=== PATIENT | male | born 1975 | race African-American/Black ===

== ENCOUNTER 2023-09-15 12:57 | Outpatient (AMB) | payer OTHER, SELFPAY ==
--- NOTE | 2023-09-15 12:59 | MHC.PC.OV ---
Vital Signs 09/15/23 13:05 Height 5 ft 11 in Weight 195 lb BMI 27.2 BP 112/74 Blood Pressure Location Rt brachial Position Sitting Pulse 73 Pulse Source Pulse Oximeter Pulse Oximetry (%) 97 Oxygen Delivery Method Room Air Intake Visit Reasons: Est Care, DM but might be controlled now Intake Note: Pt is here today as a New Patient to est care/ DM Allergies No Known Allergies Allergy (Verified 09/15/23 13:17) Tobacco use date assessed: 09/15/23 Dental Screening Dental Screen Date: 09/15/23 Did you have a dental visit in the last 12 months?: Yes Did you have a dental problem in the last 6 months where you did not have access to dental care?: No Was dental information given to patient?: Patient has dentist HPI HPI Comments History of Present Illness Details Patient is a 48-year-old male in today to establish care and have a diabetic visit. He has no complaints at the time of appointment. He has not seen a primary care provider in a couple years. He denies any symptoms of polyuria, polydipsia, tingling, numbness. He has not taken medication for his diabetes. His in office A1c was 3.6. Will need to draw labs to confirm this. Patient also offers a complaint of right shoulder and right elbow pain that has gotten progressively worse over the past year and a half. Patient states that he used to be homeless and needed to haul his luggage with him everywhere he went, which required him to lift and drag the luggage up and down stairs and on public transportation. Denies any trauma to the area. Denies any tingling or numbness. Has not tried any medications for relief [facility] Medical History (Updated 09/15/23 @ 15:15 by ZECHARIAH Bear) GERD (gastroesophageal reflux disease) Social History Housing: Apartment Patient Tobacco Use Status: Never used Tobacco e-Cigarette/Vaping Use: Never Used service: No Current occupational status: unemployed Cognitive needs: No Hearing needs: No Vision needs: No Questionnaire PHQ-9 Over the last 2 weeks, how often have you been bothered by any of the following problems? 1. Little interest or pleasure in doing things: several days 2. Feeling down, depressed, or hopeless: not at all 3. Trouble falling or staying asleep, or sleeping too much: several days 4. Feeling tired or having little energy: nearly every day 5. Poor appetite or overeating: nearly every day 6. Feeling bad about yourself - or that you are a failure or have let yourself or your family down: not at all 7. Trouble concentrating on things, such as reading the newspaper or watching television: not at all 8. Moving or speaking so slowly that other people could have noticed. Or the opposite - being so fidgety or restless that you have been moving around a lot more than usual: not at all 9. Thoughts that you would be better off or of hurting yourself in some way: not at all Total score: 8 Depression Screening Interpretation: Negative Depression Screening Done: Yes 63979 - PHQ-9 Billing: Yes Source: Developed by Drs. Chalino Rowan, Charlotte Hernandez, Keith Cifuentes and colleagues, with an educational deandre from [employer]. Thrive Questionnaire What is your living situation today?: I have a steady place to live Within the past 12 months, did the food you bought not last and you didn't have the money to get more?: Never true Within the past 12 months, did you worry whether your food would run out before you got money to buy more?: Sometimes True Do you have trouble paying for medicines?: No Do you have trouble getting transportation to medical appointments?: No Do you have trouble paying your heating and electricity bill?: No Do you have trouble taking care of your child, family member or friend?: No Do you have trouble with day-to-day activities such as bathing, preparing meals, shopping, managing finances, etc.?: No Are you currently unemployed and looking for a job?: Yes Are you interested in more education?: Yes Please select the resources that you would like help with: Transportation, Job search/training and Education AUDIT C Alcohol Use Questionnaire (AUDIT-C) 1. How often do you have a drink containing alcohol?: Never Total Score: 0 SANCHEZ-7 AMB Questionnaire SANCHEZ-7 Feeling nervous, anxious, or on edge: 0 = Not at all Not being able to stop or control worryin = Not at all Worrying too much about different things: 0 = Not at all Trouble relaxin = Not at all Being so restless that it is hard to sit still: 0 = Not at all Becoming easily annoyed or irritable: 0 = Not at all Feeling afraid as if something awful might happen: 0 = Not at all Total SANCHEZ-7 score (0-4 normal; 5-9 mild; 10-14 moderate; 15-21 severe): 0 Source: Developed by Drs. Chalino Rowan, Charlotte Hernandez, Keith Cifuentes and colleagues, with an educational deandre from [employer]. Review of Systems Const Details: Constitutional : No Weight loss, No Fever, No Chills, No Fatigue, No Malaise ENT/Mouth : No sore throat, No Rhinorrhea Eyes: No Eye Pain, No Swelling, No Redness Cardiovascular : No Chest Pain, No SOB, No Dyspnea on Exertion, No Orthopnea, No Edema, No Palpitations Respiratory : No Cough, No Sputum, No Wheezing Gastrointestinal : No Nausea, No Vomiting, No Diarrhea, No Constipation, No abdominal Pain, No Hematochezia, No Melena. Admits reflux. Genitourinary : No Dysuria, No Urinary Frequency, No Hematuria, Musculoskeletal : Admits right shoulder and elbow pain. Skin : No Skin Lesions, No rash Neuro : No Weakness, No Numbness, No Dizziness, No Headache Psych : No Anxiety/Panic, No Depression Heme/Lymph: No Bruising, No Bleeding,No Lymphadenopathy Endocrine : No Polyuria, No Polydipsia All other systems reviewed and are negative Physical exam (Primary Care) Vital Signs: Vital signs have been reviewed and are stable BMI result Body Mass Index 27.2 Depression Screening Interpretation: Negative Const Other: Appearance: Alert.? Oriented X3.? No acute distress.? CVS: Normal heart rate and rhythm.? Pulses normal.? Respiratory: No respiratory distress.? Breath sounds normal.? Abdomen: Soft and nontender.? Skin: Skin warm and dry.? Normal skin color.? Normal skin turgor.? Extremities: right shoulder and elbow pain. No obvious deformity. Some point tenderness to lateral epicondyle. Right shoulder positive for crepitus. Back: No midline tenderness, no C-spine tenderness, full range of motion, no CVA tenderness bilaterally Neuro: Oriented X 3.? No motor deficit.? No sensory deficit. CN 2-12 intact Results AMB Hemoglobin A1c AMB Hemoglobin A1c 3.2 % Last Edit by Richa Sanderson CMA on 09/15/23 13:28 Assessment and Plan Assessment & Plan (1) Right elbow pain: Comment: Patient will have x-ray. He has been prescribed diclofenac gel to be used as prescribed. Well send PT based on results Code(s): M25.521 - Pain in right elbow (2) GERD (gastroesophageal reflux disease): Comment: Patient will be prescribed omeprazole 20 mg to be taken the morning every day for the next 6 weeks. Patient is agreeable to this plan Code(s): K21.9 - Gastro-esophageal reflux disease without esophagitis Qualifiers: Esophagitis presence: esophagitis presence not specified Qualified Code(s): K21.9 - Gastro-esophageal reflux disease without esophagitis (3) Diabetes type 2, controlled: Comment: Patient states he has a history of being a type 2 diabetic. His in office A1c was 3.6. Will need to redraw labs here, will need to obtain fasting glucose. Patient is not taking any medications for this, will not start based on A1c level. Code(s): E11.9 - Type 2 diabetes mellitus without complications Qualifiers: Diabetes mellitus joint terminal attack controller insulin use: without joint terminal attack controller use Diabetes mellitus complication status: without complication Qualified Code(s): E11.9 - Type 2 diabetes mellitus without complications Plan Take your medications as prescribed. If you were prescribed antibiotics today, it is important that you take your medication to their entirety, do not skip any doses, do not finish them early. Follow-up with your primary care provider this week. Return to the emergency department with new or worsening symptoms. Such as fevers, chills, chest pain, shortness of breath, nausea, vomiting, dizziness, headache, vision changes, lethargy In case of emergency call 911 Orders: Orders Complete Blood Count Auto Diff 09/13/23 D64.9 - Anemia, unspecified XR shoulder RT min 2V Today M25.511 - Pain in right shoulder XR elbow RT 2V Today M25.521 - Pain in right elbow Microalbumin, Random (w Creat) Today E11.9 - Type 2 diabetes mellitus without complications PSA,Total (Free>4and<10) Today E11.9 - Type 2 diabetes mellitus without complications UA CC w/rflx Micro + Cult Today E11.9 - Type 2 diabetes mellitus without complications Lipid Panel 1 Week E11.9 - Type 2 diabetes mellitus without complications AMB Hemoglobin A1c Today Z13.9 - Encounter for screening, unspecified Comprehensive Met. Panel Today E11.9 - Type 2 diabetes mellitus without complications TSH reflex Free T4 Today E11.9 - Type 2 diabetes mellitus without complications Vitamin D 25-OH (D2 and D3) Today E11.9 - Type 2 diabetes mellitus without complications Glucose Fasting Today E11.9 - Type 2 diabetes mellitus without complications Referrals Podiatry Referral E11.9 - Type 2 diabetes mellitus without complications Ophthalmology Referral E11.9 - Type 2 diabetes mellitus without complications Medications: New diclofenac sodium 1% (Aleve (diclofenac)) Apply small amount to elbow and shoulder. 2 grams topical QID 100 grams 0RF omeprazole 20 mg PO DAILY 30 caps 0RF Coding Level of Care Code New Pt Level 4 (66916) Diagnoses Right elbow pain M25.521 Gastroesophageal reflux disease, unspecified whether esophagitis present K21.9 Esophagitis presence: esophagitis presence not specified Controlled type 2 diabetes mellitus without complication, without long-term current use of insulin E11.9 Diabetes mellitus joint terminal attack controller insulin use: without fci use Diabetes mellitus complication status: without complication Time Spent (min) 30
[2023-09-15 13:05] VITALS: BP 112/74; PULSE 73; O2SAT 97; BMI 27.2
== END 2023-09-15 14:17 | disposition home or self-care (01) ==
LOC: HO.HMGC 12:57
PROVIDERS: Visit Provider Nurse Practitioner Primary Care
DX: M25.521 Pain in right elbow (principal); K21.9 Gastro-esophageal reflux disease without esophagitis; E11.9 Type 2 diabetes mellitus without complications
CPT/HCPCS: 83036; 99204

== ENCOUNTER 2023-12-15 12:07 | Outpatient (REF) | payer OTHER, SELFPAY ==
--- NOTE | ~2023-12-15 | XR_ITS ---
EXAMINATION: XR ELBOW, RIGHT CLINICAL INFORMATION: Right elbow pain COMPARISON: None available. TECHNIQUE: AP, lateral, and oblique views of the right elbow. FINDINGS: The bones and soft tissues are normal. No fracture or joint effusion. Alignment is anatomic. Joint spaces are maintained. XR/XR elbow RT min 3V IMPRESSION: Normal right elbow.
--- NOTE | ~2023-12-15 | XR_ITS ---
EXAMINATION: XR SHOULDER, RIGHT CLINICAL INFORMATION: Pain in right shoulder COMPARISON: None available. TECHNIQUE: AP external rotation, Grashey, scapular Y, and axillary views of the right shoulder. FINDINGS: The bones and soft tissues are normal. No fracture. Glenohumeral and acromioclavicular alignment is anatomic with normal joint space. No abnormal soft tissue calcifications. XR/XR shoulder RT min 2V IMPRESSION: Normal right shoulder.
[2023-12-15 13:28] LABS: MANUAL DIFF FLAG NO
[2023-12-15 13:42] LABS: Basophils Absolute Auto 0.1 X10*3/uL (0.0-0.2); Basophils Percent Auto 0.9 % (0-2); Eosinophils Absolute Auto 0.2 X10*3/uL (0.0-0.4); Eosinophils Percent Auto 3.1 % (0-4); Hematocrit 42.5 % (42.0-52.0); Hemoglobin 13.4 g/dl (14.0-18.0); Imm Gran Abs Auto 0.02 X10*3/uL (0.00-0.03); Imm Gran Pct Auto 0.4 % (0.0-0.4); Lymphocytes Percent Auto 37.3 % (20-40); Mean Corpuscular HGB Conc 31.5 g/dl (31.0-36.0); Mean Corpuscular Hemoglobin 26.3 pg (27.0-33.0); Mean Corpuscular Volume 83.3 fL (80.0-98.0); Mean Platelet Volume 12.5 fL (9.4-12.4); Monocytes Absolute Auto 0.5 X10*3/uL (0.1-1.2); Monocytes Percent Auto 9.2 % (2-11); Neutrophils Absolute Auto 2.7 x10*3/uL (2.0-8.3); Neutrophils Percent Auto 49.1 % (45-73); Platelet Count 142 X10*3/uL (160-400); White Blood Count 5.4 X10*3/uL (4.8-10.8)
[2023-12-15 13:50] LABS: Appearance Urine Clear; Color Urine Yellow; Glucose Urine UA Negative (Negative); Leukocyte Esterase Urine Negative (Negative); Nitrite Urine Negative (Negative); PH 6.5 (5.0-9.0); Specific Gravity - Urine 1.025 (1.005-1.025); Urine Blood Negative (Negative); Urine Ketones Negative (Negative); Urine Protein Negative (Neg-Trace)
[2023-12-15 14:21] LABS: Creatinine Urine 174.11 mg/dL; Microalbum/Creatinine Ratio Ur 2.8 ug/mg cr (<30)
[2023-12-15 14:22] LABS: Alanine Aminotransferase 37 U/L (0-40); Albumin Level 4.2 g/dL (3.5-5.0); Alkaline Phosphatase 95 U/L (39-117); Anion Gap 14 (12-20); Aspartate Amino Transferase 24 U/L (5-37); Bilirubin Total 0.3 mg/dL (0.0-1.0); Blood Urea Nitrogen 11 mg/dL (9-16); Calcium 9.5 mg/dL (8.4-10.2); Carbon Dioxide 30 mmol/L (22-29); Chloride 105 mmol/L (96-108); Cholesterol 179 mg/dL (<200); Estimated Glomerular Filt Rate > 60; Glucose Fasting 80 mg/dL (60-99); Glucose Random 80 mg/dL (60-115); HDL Cholesterol 38 mg/dL (>40); LDL Cholesterol Calculated 112 mg/dL (<100); Sodium 145 mmol/L (135-145); Total Protein 7.7 g/dL (6.5-8.0); Triglycerides 149 mg/dL (<150)
[2023-12-15 14:35] LABS: PSA,Total (Free>4and<10) 0.61 ng/mL (0.00-4.00)
[2023-12-15 14:38] LABS: TSH reflex Free T4 3.26 uIU/mL (0.32-4.0)
[2023-12-20 14:13] LABS: Vitamin D 25-OH, D2 <4 ng/mL; Vitamin D 25-OH, D3 10 ng/mL; Vitamin D 25-OH, Total 10 ng/mL (30-100)
== END 2023-12-15 12:08 | disposition home or self-care (01) ==
LOC: HO.HMGCX 12:07
PROVIDERS: PCP Nurse Practitioner Primary Care; Visit Provider Nurse Practitioner Primary Care
DX: Z12.5 Encounter for screening for malignant neoplasm of prostate (principal); M25.511 Pain in right shoulder; M25.521 Pain in right elbow; D64.9 Anemia, unspecified; E11.9 Type 2 diabetes mellitus without complications
CPT/HCPCS: 36415; 73030; 73080; 80053; 80061; 81003; 82043; 82306; 82570; 84153; 84443; 85025

== ENCOUNTER 2023-12-23 12:12 | Outpatient (AMB) | payer OTHER, SELFPAY ==
[2023-12-23 12:21] VITALS: BP 116/74; PULSE 72; O2SAT 98; BMI 29.0
--- NOTE | 2023-12-23 12:21 | A.OFFPC_ITS ---
Vital Signs 12/23/23 12:21 Height 5 ft 11 in Weight 208 lb BMI 29.0 BP 116/74 Blood Pressure Location Lt brachial Position Sitting Pulse 72 Pulse Source Pulse Oximeter Pulse Oximetry (%) 98 Oxygen Delivery Method Room Air Intake Visit Reasons: Annual PE Intake Note: pt is here for annual exam Allergies No Known Allergies Allergy (Verified 12/23/23 12:56) Medication List - Last Reconciled 12/23/23 by ZECHARIAH Bear meloxicam 15 mg PO DAILY PRN omeprazole 20 mg PO DAILY paliperidone palmitate (Invega Sustenna) 156 mg IM Q30D Tobacco use date assessed: 12/23/23 Dental Screening Dental Screen Date: 12/23/23 Did you have a dental visit in the last 12 months?: No Did you have a dental problem in the last 6 months where you did not have access to dental care?: No Was dental information given to patient?: Patient declined HPI HPI Comments History of Present Illness Details Patient is a 48-year-old male here for diabetic follow-up. Patient's last A1c in office was 3.6. Patient is currently not taking any medication for diabetes. Patient is up-to-date with microalbumin drawn at previous appointment 3 months prior was normal. Patient is up-to-date with Ophthalmology and Podiatry. Patient also has a past medical history significant for right shoulder pain, right elbow pain, GERD, schizoaffective/schizophrenia. Patient currently gets Invega Sustenna shots from [employer] and has psychiatric provider. Patient has a chief complaint of left shoulder pain, which got progressively worse over the past 3 months. Patient has not tried any medication for relief. Will obtain left shoulder x-ray, will order meloxicam to be taken as directed. Patient denies symptoms of polyuria, polydipsia. Will repeat A1c in office today. [facility] Medical History Schizophrenia GERD (gastroesophageal reflux disease) Surgical History No pertinent past surgical history Social History Housing: Apartment Patient Tobacco Use Status: Never used Tobacco e-Cigarette/Vaping Use: Never Used service: No Current occupational status: unemployed Cognitive needs: No Hearing needs: No Vision needs: No Questionnaire PHQ-9 Over the last 2 weeks, how often have you been bothered by any of the following problems? 1. Little interest or pleasure in doing things: several days 2. Feeling down, depressed, or hopeless: not at all 3. Trouble falling or staying asleep, or sleeping too much: several days 4. Feeling tired or having little energy: nearly every day 5. Poor appetite or overeating: nearly every day 6. Feeling bad about yourself - or that you are a failure or have let yourself or your family down: not at all 7. Trouble concentrating on things, such as reading the newspaper or watching television: not at all 8. Moving or speaking so slowly that other people could have noticed. Or the opposite - being so fidgety or restless that you have been moving around a lot more than usual: not at all 9. Thoughts that you would be better off or of hurting yourself in some way: not at all Total score: 8 Depression Screening Interpretation: Negative Depression Screening Done: Yes 56794 - PHQ-9 Billing: Yes Source: Developed by Drs. Chalino Rowan, Charlotte Hernandez, Keith Cifuentes and colleagues, with an educational deandre from [employer]. Thrive Questionnaire Date Thrive assessed: 12/23/23 What is your living situation today?: I have a steady place to live Within the past 12 months, did the food you bought not last and you didn't have the money to get more?: Never true Within the past 12 months, did you worry whether your food would run out before you got money to buy more?: Sometimes True Do you have trouble paying for medicines?: No Do you have trouble getting transportation to medical appointments?: No Do you have trouble paying your heating and electricity bill?: No Do you have trouble taking care of your child, family member or friend?: No Do you have trouble with day-to-day activities such as bathing, preparing meals, shopping, managing finances, etc.?: No Are you currently unemployed and looking for a job?: Yes Are you interested in more education?: Yes Please select the resources that you would like help with: Transportation, Job search/training and Education Currently or been in a relationship where the following occur: no concerns reported THRIVE Score: 1 AUDIT C Alcohol Use Questionnaire (AUDIT-C) 1. How often do you have a drink containing alcohol?: Never Total Score: 0 Score Reviewed/Action Taken: Yes SANCHEZ-7 AMB Questionnaire SANCHEZ-7 Date SANCHEZ - 7 assessed: 12/23/23 Feeling nervous, anxious, or on edge: 0 = Not at all Not being able to stop or control worryin = Not at all Worrying too much about different things: 0 = Not at all Trouble relaxin = Not at all Being so restless that it is hard to sit still: 0 = Not at all Becoming easily annoyed or irritable: 0 = Not at all Feeling afraid as if something awful might happen: 0 = Not at all Total SANCHEZ-7 score (0-4 normal; 5-9 mild; 10-14 moderate; 15-21 severe): 0 Source: Developed by Drs. Chalino Rowan, Charlotte Hernandez, Keith Cifuentes and colleagues, with an educational deandre from [employer]. SANCHEZ-7 Assessment Billing SANCHEZ-7 Assessment Tool: SANCHEZ-7 Assessment 05059 Review of Systems Const All systems reviewed & are unremarkable except as noted in HPI and below Physical exam (Primary Care) Vital Signs: Last Vital Signs Pulse 72 12/23/23 12:21 BP 116/74 12/23/23 12:21 Pulse Ox 98 12/23/23 12:21 Oxygen Delivery Method Room Air 12/23/23 12:21 Care Plan Goal for BP management: Vitals reviewed stable. BMI result Body Mass Index 29.0 Tobacco/Smoking Status: Tobacco use Status Tobacco use date assessed 12/23/23 12/23/23 12:25 Patient Tobacco Use Status Never used Tobacco 12/23/23 12:25 e-Cigarette/Vaping Use Never Used 12/23/23 12:25 PHQ-9: PHQ-9 Score PHQ-9: Total score 8 12/23/23 12:25 Depression Screening Interpretation: Negative Thrive Assessment: Date of Thrive Assessment Date Thrive assessed 12/23/23 12/23/23 12:25 Currently or been in a relationship where the following occur: no concerns reported Const Other: Appearance: Alert.? Oriented X3.? No acute distress.? Head: Normocephalic, atraumatic, no step-offs or deformities CVS: Normal heart rate and rhythm.? Pulses normal.? Respiratory: No respiratory distress.? Breath sounds normal.? Abdomen: Soft and nontender.? Skin: Skin warm and dry.? Normal skin color.? Normal skin turgor.? Extremities: No lower extremity edema.? No calf ttp. 5/5 strength to bilateral upper and lower extremities Back: No midline tenderness, no C-spine tenderness, full range of motion, no CVA tenderness bilaterally. Full ROM. +crepitus of right shoulder. Neuro: Oriented X 3.? No motor deficit.? No sensory deficit. CN 2-12 intact Assessment and Plan Assessment & Plan (1) Diabetes type 2, controlled: Comment: Patient states he has a history of being a type 2 diabetic. His in office A1c was 3.6. Will need to redraw labs here, will need to obtain fasting glucose. Patient is not taking any medications for this, will not start based on A1c level. Code(s): E11.9 - Type 2 diabetes mellitus without complications Qualifiers: Diabetes mellitus senior living insulin use: without middle or intermediate school principal use Diabetes mellitus complication status: without complication Qualified Code(s): E11.9 - Type 2 diabetes mellitus without complications (2) Right shoulder pain: Comment: Right shoulder pain. Will order X-ray. Will prescribe meloxicam. Code(s): M25.511 - Pain in right shoulder Qualifiers: Chronicity: acute Qualified Code(s): M25.511 - Pain in right shoulder Plan: Patient will follow-up and 3 month Plan Take your medications as prescribed. If you were prescribed antibiotics today, it is important that you take your medication to their entirety, do not skip any doses, do not finish them early. Follow-up with your primary care provider this week. Return to the emergency department with new or worsening symptoms. Such as fevers, chills, chest pain, shortness of breath, nausea, vomiting, dizziness, headache, vision changes, lethargy In case of emergency call 911 Orders: Orders XR shoulder LT min 2V Today M25.512 - Pain in left shoulder Hemoglobin A1c Today E11.9 - Type 2 diabetes mellitus without complications PT Evaluation and Treatment Today M25.512 - Pain in left shoulder Medications: New meloxicam 15 mg PO DAILY PRN 30 tabs 0RF pain, moderate Coding Level of Care Code Est Pt Level 3 (08318) Diagnoses Controlled type 2 diabetes mellitus without complication, without long-term current use of insulin E11.9 Diabetes mellitus senior living insulin use: without senior living use Diabetes mellitus complication status: without complication Acute pain of right shoulder M25.511 Chronicity: acute Additional Codes SANCHEZ-7 Assessment Billing - SANCHEZ-7 Assessment Tool: SANCHEZ-7 Assessment [id number] ([id number]) Time Spent (min) 22
== END 2023-12-23 14:04 | disposition home or self-care (01) ==
PROVIDERS: PCP Nurse Practitioner Primary Care; Visit Provider Nurse Practitioner Primary Care
DX: E11.9 Type 2 diabetes mellitus without complications (principal); M25.511 Pain in right shoulder
CPT/HCPCS: 99213

== ENCOUNTER 2023-12-23 13:01 | Outpatient (REF) | payer OTHER, SELFPAY ==
--- NOTE | ~2023-12-23 | XR_ITS ---
EXAMINATION: XR SHOULDER, LEFT CLINICAL INFORMATION: Pain. COMPARISON: Radiographs dated 12/15/2023. TECHNIQUE: AP neutral rotation, Grashey and scapula Y views of the left shoulder are submitted. FINDINGS: The bones and soft tissues are normal. No fracture. Glenohumeral and acromioclavicular alignment is anatomic with normal joint space. No abnormal soft tissue calcifications. XR/XR shoulder LT min 2V IMPRESSION: Normal left shoulder.
[2023-12-23 17:09] LABS: Estimated Average Glucose 105 mg/dL; Hemoglobin A1c % 5.3 % (<6.0)
== END 2023-12-23 13:02 | disposition home or self-care (01) ==
LOC: HO.HMGCX 13:01
PROVIDERS: PCP Nurse Practitioner Primary Care; Visit Provider Nurse Practitioner Primary Care
DX: E11.9 Type 2 diabetes mellitus without complications (principal); M25.512 Pain in left shoulder
CPT/HCPCS: 36415; 73030; 83036

== ENCOUNTER 2024-02-22 12:00 | Outpatient (RCR) | payer OTHER, SELFPAY ==
--- NOTE | 2024-01-18 13:11 | MHC.PT.EP ---
[facility] [place] Office [place] Office [place] Office [address] [phone] F: [phone] F: [phone] F: [phone] F: [phone] Physical Therapy Plan of Care Date of Evaluation: 01/18/24 Date of Surgery: Diagnosis: Pain in L shoulder Assessment: 48 y/o L-hand dominant male referred to PT with L shoulder pain. He has B shoulder pain of insidious onset resulting in pain and difficulty with sleeping on sides, performing push-ups, reaching behind back, dressing and reaching overhead. Of note, he has schizoaffective disorder and gets monthly Invega injections and sees a psychiatrist (reports thinking shoulder pain may have something to do with a time of prolonged hospitalization for mental health). Examiantion shows limited and painful shoulder A/PROM (flex/abd/IR), decreased B UE stregnth, pain, and impaired postural awareness. Recommend PT 1x/week for 5 weeks to address impairments, implement HEP, and optimize functional mobility. Frequency and Duration: The patient will be seen 1x/week for 5 weeks Short Term Goals: 3 weeks I wtih HEP Long-Term Goals: 5 weeks I with HEP and self management of sx Pt will be able to reach overhead with pain < 3/10 Pt will be able to reach behind back with pain < 3/10 Treatment Plan: Modalities to reduce pain, spasms and effusion. Manual therapy to restore motion and function. Therapeutic exercise to improve strength and flexibility. Neuromuscular re-education for posture and balance. Therapeutic activities to return to functional activities of daily living. Electronically signed by: Abeba Payton PT Please sign and return to therapist. Thank you for your referral.
--- NOTE | 2024-02-22 13:45 | MHC.PT.DC ---
[facility] [place] Office [place] Office [place] Office [address] Mac[address] [phone] F: [phone] F: [phone] F: [phone] F: [phone] Physical Therapy Discharge Report Diagnosis: Pain in L shoulder Date of Surgery: Date of Evaluation: 01/18/24 Date of Discharge: 02/22/24 Treatments to Date: 6 Cancellations to Date: 0 No Shows to Date: 0 Discharge Status: Achieved Goals Improved Function Independent with HEP Discharge Summary: He reports feeling better. He now demonstrates improved ROM, and improved functional mobility. He still requires cues to slow down pace of exercises. At this time. he is appropriate for d/c secondary to meeting goals, I with HEP Electronically signed by: Geno Payton PT Please sign and return to therapist. Thank you for your referral.
== END 2024-02-22 13:45 | disposition home or self-care (01) ==
LOC: HO.PT 12:00
PROVIDERS: PCP Nurse Practitioner Primary Care; Visit Provider Nurse Practitioner Primary Care
DX: M25.512 Pain in left shoulder (principal)
CPT/HCPCS: 97110; 97162

== ENCOUNTER 2024-03-21 13:18 | Outpatient (AMB) | payer OTHER, SELFPAY ==
--- NOTE | 2024-03-21 13:48 | MHC.PC.OV ---
Vital Signs 03/21/24 13:54 Height 5 ft 11 in Weight 209 lb BMI 29.1 BP 106/70 Blood Pressure Location Lt brachial Position Sitting Pulse 83 Pulse Source Pulse Oximeter Pulse Oximetry (%) 98 Oxygen Delivery Method Room Air Intake Visit Reasons: 3 month follow up DM Intake Note: pt is here for 3 mo f/u for Diabetes. HbA1c 5.3% 12/23/23 Allergies No Known Allergies Allergy (Verified 03/21/24 14:31) Medication List - Last Reconciled 03/21/24 by ZECHARIAH Bear famotidine 20 mg PO BEDTIME meloxicam 15 mg PO DAILY PRN omeprazole 20 mg PO DAILY paliperidone palmitate (Invega Sustenna) 156 mg IM Q30D Tobacco use date assessed: 03/21/24 Dental Screening Dental Screen Date: 12/23/23 HPI HPI Comments History of Present Illness Details The patient is a 48-year-old male in today for 3 month follow-up for diabetes patient's recent A1cs have been all under 6.5 been well controlled. Patient had referral for Podiatry but declined. Patient is up-to-date with ophthalmology. He denies any symptoms of polyuria polydipsia. Patient was slightly anemic at previous visit, will redraw CBC. Has no complaints of dizziness, lethargy, headache, chest pain, numbness. Patient does report that he is getting reflux which gets worse at night, is causing him the cough. Was started on omeprazole with mild effect. Will add from 0 to Ciaran to be taken p.r.n. at night patient has also been educated that he should avoid triggering foods, should avoid eating at least 2-3 hours before bed should drink plenty of water if this problem persists will refer to Gastroenterology Patient was found to be low in vitamin D3 3 months prior. Has been taking 2000 units vitamin D3 daily for the past 3 months. Will redraw vitamin-D today. Patient will get referral for colonoscopy. [facility] Medical History Schizophrenia GERD (gastroesophageal reflux disease) Surgical History No pertinent past surgical history Social History Housing: Apartment Patient Tobacco Use Status: Never used Tobacco e-Cigarette/Vaping Use: Never Used service: No Current occupational status: unemployed Cognitive needs: No Hearing needs: No Vision needs: No Questionnaire Thrive Questionnaire Date Thrive assessed: 12/23/23 SANCHEZ-7 AMB Questionnaire SANCHEZ-7 Date SANCHEZ - 7 assessed: 12/23/23 Source: Developed by Drs. Chalino Rowan, Charlotte Hernandez, Keith Cifuentes and colleagues, with an educational deandre from [employer]. Review of Systems Const All systems reviewed & are unremarkable except as noted in HPI and below Physical exam (Primary Care) Vital Signs: Last Vital Signs Pulse 83 03/21/24 13:54 BP 106/70 03/21/24 13:54 Pulse Ox 98 03/21/24 13:54 Oxygen Delivery Method Room Air 03/21/24 13:54 Care Plan Goal for BP management: Blood pressure is controlled BMI result Body Mass Index 29.1 Tobacco/Smoking Status: Tobacco use Status Tobacco use date assessed 03/21/24 03/21/24 13:52 Patient Tobacco Use Status Never used Tobacco 03/21/24 13:49 e-Cigarette/Vaping Use Never Used 03/21/24 13:49 Thrive Assessment: Date of Thrive Assessment Date Thrive assessed 12/23/23 03/21/24 13:49 Const Other: Appearance: Alert.? Oriented X3.? No acute distress.? Head: Normocephalic, atraumatic, no step-offs or deformities Neck: Normal inspection.? Neck supple.? CVS: Normal heart rate and rhythm.? Pulses normal.? Respiratory: No respiratory distress.? Breath sounds normal.? Abdomen: Soft and nontender.? Neuro: Oriented X 3.? No motor deficit.? No sensory deficit. Assessment and Plan Assessment & Plan (1) Vitamin D deficiency: Comment: Patient utilizing 2000 units vitamin D3 per day. Will redraw vitamin-D today. Code(s): E55.9 - Vitamin D deficiency, unspecified (2) GERD (gastroesophageal reflux disease): Comment: Patient will be prescribed omeprazole 20 mg to be taken the morning every day for the next 6 weeks. Patient is agreeable to this plan. Patient will have famotidine 20 mg p.r.n. at night added. Code(s): K21.9 - Gastro-esophageal reflux disease without esophagitis Qualifiers: Esophagitis presence: esophagitis presence not specified Qualified Code(s): K21.9 - Gastro-esophageal reflux disease without esophagitis (3) Diabetes type 2, controlled: Comment: Patient states he has a history of being a type 2 diabetic. Patient's previous A1cs have been in control. Will redraw today. Patient not utilizing medication at this time. Code(s): E11.9 - Type 2 diabetes mellitus without complications Qualifiers: Diabetes mellitus exterminator helper termite insulin use: without chcf use Diabetes mellitus complication status: without complication Qualified Code(s): E11.9 - Type 2 diabetes mellitus without complications Plan draw labs Orders: Orders Vitamin D 25-OH (D2 and D3) Today Z13.21 - Encounter for screening for nutritional disorder Complete Blood Count Auto Diff Today E55.9 - Vitamin D deficiency, unspecified, K21.9 - Gastro-esophageal reflux disease without esophagitis Comprehensive Met. Panel Today Z91.89 - Other specified personal risk factors, not elsewhere classified Hemoglobin A1c Today E11.9 - Type 2 diabetes mellitus without complications Referrals Gastroenterology Referral Z12.11 - Encounter for screening for malignant neoplasm of colon Medications: New famotidine 20 mg PO BEDTIME 30 tabs 0RF Coding Level of Care Code Est Pt Level 3 (08086) Diagnoses Vitamin D deficiency E55.9 Gastroesophageal reflux disease, unspecified whether esophagitis present K21.9 Esophagitis presence: esophagitis presence not specified Controlled type 2 diabetes mellitus without complication, without long-term current use of insulin E11.9 Diabetes mellitus chcf insulin use: without exterminator helper termite use Diabetes mellitus complication status: without complication Time Spent (min) 27
[2024-03-21 13:54] VITALS: BP 106/70; PULSE 83; O2SAT 98; BMI 29.1
== END 2024-03-21 14:33 | disposition home or self-care (01) ==
PROVIDERS: PCP Nurse Practitioner Primary Care; Visit Provider Nurse Practitioner Primary Care
DX: E55.9 Vitamin D deficiency, unspecified (principal); K21.9 Gastro-esophageal reflux disease without esophagitis; E11.9 Type 2 diabetes mellitus without complications
CPT/HCPCS: 99213

== ENCOUNTER 2024-03-21 14:36 | Outpatient (REF) | payer OTHER, SELFPAY ==
[2024-03-21 16:13] LABS: MANUAL DIFF FLAG NO
[2024-03-21 16:16] LABS: Basophils Percent Auto 0.5 % (0-2); Eosinophils Absolute Auto 0.1 X10*3/uL (0.0-0.4); Eosinophils Percent Auto 2.2 % (0-4); Hematocrit 43.2 % (42.0-52.0); Imm Gran Abs Auto 0.03 X10*3/uL (0.00-0.03); Imm Gran Pct Auto 0.5 % (0.0-0.4); Lymphocytes Absolute Auto 1.8 X10*3/uL (1.2-4.9); Lymphocytes Percent Auto 30.6 % (20-40); Mean Corpuscular HGB Conc 32.4 g/dl (31.0-36.0); Mean Corpuscular Hemoglobin 26.1 pg (27.0-33.0); Mean Corpuscular Volume 80.6 fL (80.0-98.0); Mean Platelet Volume 12.9 fL (9.4-12.4); Monocytes Absolute Auto 0.6 X10*3/uL (0.1-1.2); Monocytes Percent Auto 10.2 % (2-11); Neutrophils Absolute Auto 3.2 x10*3/uL (2.0-8.3); Platelet Count 170 X10*3/uL (160-400); Red Blood Count 5.36 X10*6/uL (4.60-5.80); Red Cell Distribution Width 14.2 % (11.0-16.0); White Blood Count 5.8 X10*3/uL (4.8-10.8)
[2024-03-21 16:29] LABS: Estimated Average Glucose 111 mg/dL; Hemoglobin A1c % 5.5 % (<6.0)
[2024-03-21 16:33] LABS: Alanine Aminotransferase 27 U/L (0-40); Albumin Level 4.2 g/dL (3.5-5.0); Alkaline Phosphatase 93 U/L (39-117); Anion Gap 13 (12-20); Aspartate Amino Transferase 22 U/L (5-37); Bilirubin Total 0.4 mg/dL (0.0-1.0); Blood Urea Nitrogen 9 mg/dL (9-16); Calcium 9.8 mg/dL (8.4-10.2); Carbon Dioxide 25 mmol/L (22-29); Chloride 107 mmol/L (96-108); Estimated Glomerular Filt Rate > 60; Glucose Random 87 mg/dL (60-115); Potassium 3.9 mmol/L (3.3-5.1); Sodium 141 mmol/L (135-145); Total Protein 7.7 g/dL (6.5-8.0)
[2024-03-25 16:14] LABS: Vitamin D 25-OH, D2 <4 ng/mL; Vitamin D 25-OH, D3 32 ng/mL; Vitamin D 25-OH, Total 32 ng/mL (30-100)
== END 2024-03-21 14:37 | disposition home or self-care (01) ==
LOC: HO.HMGCLDS 14:36
PROVIDERS: PCP Nurse Practitioner Primary Care; Visit Provider Nurse Practitioner Primary Care
DX: E11.9 Type 2 diabetes mellitus without complications (principal); Z13.21 Encounter for screening for nutritional disorder; E55.9 Vitamin D deficiency, unspecified; K21.9 Gastro-esophageal reflux disease without esophagitis; Z91.89 Other specified personal risk factors, not elsewhere classified
CPT/HCPCS: 36415; 80053; 82306; 83036; 85025

== ENCOUNTER 2024-05-30 11:11 | Outpatient (AMB) | payer OTHER, SELFPAY ==
[2024-05-30 12:23] VITALS: BP 116/82; PULSE 92; O2SAT 97; BMI 29.6
--- NOTE | 2024-05-30 12:23 | MHC.PC.OV ---
Vital Signs 05/30/24 12:23 Height 5 ft 11 in Weight 212 lb 2 oz BMI 29.6 BP 116/82 Blood Pressure Location Lt brachial Position Sitting Pulse 92 Pulse Source Pulse Oximeter Pulse Oximetry (%) 97 Oxygen Delivery Method Room Air Intake Visit Reasons: 3M F/U transfer from [facility]/ Allergies No Known Allergies Allergy (Verified 05/30/24 12:45) Medication List - Last Reconciled 05/30/24 by Leslie Enciso MD famotidine 20 mg PO BEDTIME meloxicam 15 mg PO DAILY PRN omeprazole 20 mg PO DAILY paliperidone palmitate (Invega Sustenna) 156 mg IM Q30D Tobacco use date assessed: 03/21/24 Dental Screening Dental Screen Date: 12/23/23 HPI 3M F/U transfer from [facility]/ HPI Details 48-year-old male , new to in transferring from [facility], here today for follow-up on his diabetes mellitus, which is controlled with diet and exercise, with last hemoglobin A1c taken 3 months ago at 5.5%. Patient is up-to-date with ophthalmology. Has chronic GERD, currently takes omeprazole 20 mg daily, but stopped taking famotidine prescribed by previous provider. Complains of joint pains mainly in fingers and arm, takes meloxicam as needed. States that he has erectile dysfunction, currently not taking any medication. Cyst to free up followed by psychiatrist, TARAH AMBRIZ?, and is receiving Invega Sustenna IM every 30 days. [facility] Medical History (Updated 06/03/24 @ 23:58 by Leslie Enciso MD) Polyarthralgia Erectile dysfunction Schizophrenia GERD (gastroesophageal reflux disease) Surgical History No pertinent past surgical history Social History Housing: Apartment Patient Tobacco Use Status: Never used Tobacco e-Cigarette/Vaping Use: Never Used service: No Current occupational status: unemployed Cognitive needs: No Hearing needs: No Vision needs: No Questionnaire PHQ-9 Over the last 2 weeks, how often have you been bothered by any of the following problems? 1. Little interest or pleasure in doing things: nearly every day 2. Feeling down, depressed, or hopeless: not at all 3. Trouble falling or staying asleep, or sleeping too much: nearly every day 4. Feeling tired or having little energy: more than half the days 5. Poor appetite or overeating: not at all 6. Feeling bad about yourself - or that you are a failure or have let yourself or your family down: not at all 7. Trouble concentrating on things, such as reading the newspaper or watching television: not at all 8. Moving or speaking so slowly that other people could have noticed. Or the opposite - being so fidgety or restless that you have been moving around a lot more than usual: not at all 9. Thoughts that you would be better off or of hurting yourself in some way: not at all Total score: 8 Depression Screening Interpretation: Negative (Currently diagnosed with schizophrenia, followed by psychiatry TARAH AMBRIZ ) Depression Screening Done: Yes Source: Developed by Drs. Chalino Rowan, Charlotte Hernandez, Keith Cifuentes and colleagues, with an educational deandre from [employer]. Thrive Questionnaire Date Thrive assessed: 12/23/23 I am a: Patient What is your living situation today?: I have a steady place to live Within the past 12 months, did the food you bought not last and you didn't have the money to get more?: Never true Within the past 12 months, did you worry whether your food would run out before you got money to buy more?: Never true Do you have trouble paying for medicines?: No Do you have trouble getting transportation to medical appointments?: No Do you have trouble paying your heating and electricity bill?: No Do you have trouble taking care of your child, family member or friend?: No Do you have trouble with day-to-day activities such as bathing, preparing meals, shopping, managing finances, etc.?: No Are you currently unemployed and looking for a job?: Yes Are you interested in more education?: No Please select the resources that you would like help with: Job search/training Currently or been in a relationship where the following occur: No concerns reported THRIVE Score: 0 AUDIT C Alcohol Use Questionnaire (AUDIT-C) 1. How often do you have a drink containing alcohol?: Never Total Score: 0 SANCHEZ-7 AMB Questionnaire SANCHEZ-7 Date SANCHEZ - 7 assessed: 12/23/23 Feeling nervous, anxious, or on edge: 0 = Not at all Not being able to stop or control worryin = Not at all Worrying too much about different things: 0 = Not at all Trouble relaxin = Not at all Being so restless that it is hard to sit still: 0 = Not at all Becoming easily annoyed or irritable: 0 = Not at all Feeling afraid as if something awful might happen: 0 = Not at all Total SANCHEZ-7 score (0-4 normal; 5-9 mild; 10-14 moderate; 15-21 severe): 0 Source: Developed by Drs. Chalino Rowan, Charlotte Hernandez, Keith Cifuentes and colleagues, with an educational deandre from [employer]. SANCHEZ-7 Assessment Billing SANCHEZ-7 Assessment Tool: SANCHEZ-7 Assessment 11756 Review of Systems Const All systems reviewed & are unremarkable except as noted in HPI and below Physical exam (Primary Care) Vital Signs: Last Vital Signs Pulse 92 05/30/24 12:23 BP 116/82 05/30/24 12:23 Pulse Ox 97 05/30/24 12:23 Oxygen Delivery Method Room Air 05/30/24 12:23 BMI result Body Mass Index 29.6 Tobacco/Smoking Status: Tobacco use Status Tobacco use date assessed 03/21/24 05/30/24 12:26 Patient Tobacco Use Status Never used Tobacco 05/30/24 12:26 e-Cigarette/Vaping Use Never Used 05/30/24 12:26 PHQ-9: PHQ-9 Score PHQ-9: Total score 8 05/30/24 12:48 Depression Screening Interpretation: Negative (Currently diagnosed with schizophrenia, followed by psychiatry TARAH AMBRIZ ) Thrive Assessment: Date of Thrive Assessment Date Thrive assessed 12/23/23 05/30/24 12:26 Currently or been in a relationship where the following occur: No concerns reported Const General: comfortable, no acute distress and alert Orientation/consciousness: patient oriented x3 HENMT Ears: external ears normal General nose exam: Normal external nose present and No nasal discharge present Mouth: Normal oral and palatal mucosa present, oropharynx normal and moist mucous membranes Eyes General: appearance normal, both eyes and all related structures Neck Neck: Yes full ROM, Yes no lymphadenopathy and Yes supple Resp Effort & Inspection: normal respiratory effort and able to speak in complete sentences Auscultation: clear to auscultation bilaterally Cardio Rate: regular rate Rhythm: regular rhythm Heart sounds: S1 normal heart sound present and S2 normal heart sound present GI Palpation (GI): Soft to palpation, nontender and no masses Auscultation: normal bowel sounds Back/Spine/Pelvis Back: No back tenderness Skin General skin exam: no rashes or lesions noted Neuro General: patient oriented x3, gait normal, tone normal, moves all extremities, Normal light touch and pain sensation and no focal motor deficits Cranial nerves: Yes CN's II-XII intact bilaterally Cognition (Neuro): normal cognition Extrem General: Yes full ROM, Yes no joint enlargement, Yes no clubbing, cyanosis or edema and Yes no calf tenderness Psych Appearance: grossly normal and well kempt Mental Status: mental status grossly normal Speech and movement: Normal speech and movement present Affect: normal affect Attitude: cooperative Assessment and Plan Assessment & Plan (1) Erectile dysfunction: Code(s): N52.9 - Male erectile dysfunction, unspecified Qualifiers: Erectile dysfunction type: unspecified Qualified Code(s): N52.9 - Male erectile dysfunction, unspecified Plan: Will check total and free testosterone level (2) Polyarthralgia: Code(s): M25.50 - Pain in unspecified joint Plan: Advised to try taking Tylenol arthritis 650 mg 1 tablet every 8 hours as needed for pain control. (3) GERD (gastroesophageal reflux disease): Comment: . Code(s): K21.9 - Gastro-esophageal reflux disease without esophagitis Qualifiers: Esophagitis presence: esophagitis presence not specified Qualified Code(s): K21.9 - Gastro-esophageal reflux disease without esophagitis Plan: Takes omeprazole 20 mg taken in the morning Orders: Orders Testosterone, Free/Total 05/31/24 N52.9 - Male erectile dysfunction, unspecified Medications: New acetaminophen ER (Tylenol Arthritis Pain) 650 mg PO Q8H PRN 90 tabs 1RF joint pain Discontinued famotidine Discontinued Reason: Patient no longer taking 20 mg PO BEDTIME 90 tabs 0RF Coding Level of Care Code Est Pt Level 4 (48257) Diagnoses Erectile dysfunction, unspecified erectile dysfunction type N52.9 Erectile dysfunction type: unspecified Polyarthralgia M25.50 Gastroesophageal reflux disease, unspecified whether esophagitis present K21.9 Esophagitis presence: esophagitis presence not specified Additional Codes SANCHEZ-7 Assessment Billing - SANCHEZ-7 Assessment Tool: SANCHEZ-7 Assessment 29453 ([id number])
== END 2024-05-30 13:06 | disposition home or self-care (01) ==
PROVIDERS: PCP Nurse Practitioner Primary Care; Visit Provider Internal Medicine
DX: N52.9 Male erectile dysfunction, unspecified (principal); M25.50 Pain in unspecified joint; K21.9 Gastro-esophageal reflux disease without esophagitis
CPT/HCPCS: 99214

== ENCOUNTER 2024-05-31 08:45 | Outpatient (REF) | payer OTHER, SELFPAY ==
[2024-06-05 15:09] LABS: Testosterone, Free 49.7 pg/mL (35.0-155.0); Testosterone, Total 267 ng/dL (250-1100)
== END 2024-05-31 08:46 | disposition home or self-care (01) ==
LOC: HO.HMGCLDS 08:45
PROVIDERS: PCP Internal Medicine; Visit Provider Internal Medicine
DX: N52.9 Male erectile dysfunction, unspecified (principal)
CPT/HCPCS: 36415; 84402; 84403

== ENCOUNTER 2024-07-10 09:29 | Outpatient (AMB) | payer OTHER, SELFPAY ==
[2024-07-10 09:39] VITALS: BP 134/80; PULSE 86; O2SAT 97
--- NOTE | 2024-07-10 09:39 | A.OFFVIS_ITS ---
Vital Signs 07/10/24 09:39 Height 5 ft 11 in Weight 215 lb 2.738 oz BMI 30.0 BP 134/80 Blood Pressure Location Lt brachial Position Sitting Pulse 86 Pulse Source Pulse Oximeter Pulse Oximetry (%) 97 Oxygen Delivery Method Room Air Intake Visit Reasons: Colonoscopy Screening Intake Note: Laci presents in office today for a scheduled colo consult. Pt reports having chronic sx including GERD sx and R Flank / RLQ pain. Pt reports having difficulties with intermittent constipation and diarrhea. Pt also reports having difficulties with phlegm and dysphagia primarily first in the morning. Pt does report pertinent family hx of colo cancer. No previous hx of EGD or colo to this point. Pt reports having what he believes to be tonsil stones as well and wanted to make sure that there was no reason to be concerned regarding the presence of those. Massage Therapy Instructor Required: No Accompanied by: Other Relationship Allergies No Known Allergies Allergy (Verified 07/10/24 09:45) HPI HPI Colonoscopy Screening: Details: 49 year old? male here today for pre colonoscopy screening.? Patient was sent to us by his PCP.? This is his first colonoscopy screening.? Patient denies any gastrointestinal symptoms in the past or at present.? Patient is brother of CRC in his 40s. Patient never had anesthesia in the past..? Negative for history of sleep apnea.? Denies any history of cardiac, renal, pulmonary, or hepatic disease.?? No history of infectious? diseases like hepatitis A, B, C, HIV or tuberculosis.? Patient is not on any anticoagulation [facility] Medical History Diarrhea Constipation Polyarthralgia Erectile dysfunction Schizophrenia GERD (gastroesophageal reflux disease) Surgical History No pertinent past surgical history Family History Father Colon cancer Social History Housing: Apartment Patient Tobacco Use Status: Never used Tobacco e-Cigarette/Vaping Use: Never Used service: No Current occupational status: unemployed Cognitive needs: No Hearing needs: No Vision needs: No Review of Systems Const Denies weight gain and Denies weight loss ENT Reports no additional complaints, Denies dysphagia and Denies odynophagia Card Reports no additional complaints Resp Reports no additional complaints GI Denies abdominal pain, Denies belching, Denies melena, Reports bloating, Denies change in bowel habits, Reports constipation (Occasional), Denies dysphagia, Denies excessive flatus, Denies dyspepsia, Denies heartburn, Denies diarrhea, Denies loose stools, Denies nausea, Denies odynophagia and Denies vomiting Reports no additional complaints Musc Reports no additional complaints Neuro Reports no additional complaints Psych Reports no additional complaints Endo Reports no additional complaints Physical Exam Vital Signs: Last Vital Signs Pulse 86 07/10/24 09:39 BP 134/80 07/10/24 09:39 Pulse Ox 97 07/10/24 09:39 Oxygen Delivery Method Room Air 07/10/24 09:39 BMI result Body Mass Index 30.0 Const General: healthy appearing and no acute distress Nutritional Appearance: obese Orientation/consciousness: patient oriented x3 Resp Effort & Inspection: normal respiratory effort, able to speak in complete sentences, no tracheal deviation and symmetric chest movement Auscultation: clear to auscultation bilaterally Cardio Rate: regular rate GI Inspection: Yes normal to inspection, No distended and Yes obesity Palpation (GI): Soft to palpation, not firm, nontender and No hepatosplenomegaly present Auscultation: normal bowel sounds General: Yes no CVA tenderness Back/Spine/Pelvis Back: no CVA tenderness Skin General skin exam: elasticity normal, turgor normal and dry skin Neuro General: patient oriented x3 Psych Appearance: grossly normal Mental Status: mental status grossly normal Assessment & Plan Assessment & Plan (1) GERD (gastroesophageal reflux disease): Comment: . Code(s): K21.9 - Gastro-esophageal reflux disease without esophagitis Category: Medical Qualifiers: Esophagitis presence: esophagitis presence not specified Qualified Code(s): K21.9 - Gastro-esophageal reflux disease without esophagitis (2) Screen for colon cancer: Code(s): Z12.11 - Encounter for screening for malignant neoplasm of colon (3) Constipation: Code(s): K59.00 - Constipation, unspecified Qualifiers: Constipation type: slow transit constipation Qualified Code(s): K59.01 - Slow transit constipation Plan Patient denies any GI, cardiac or respiratory symptoms.? However patient reports that since last year he has been on omeprazole for GERD and has been working for him. Occasional constipation will send a script for Dulcolax. Patient never had anesthesia in the past. Family history of CRC.? Denies any history of sleep apnea.? No history infectious diseases in the past or present.? Not on any anticoagulation therapy.? Patient denies melena, hematochezia, unintentional weight loss or ribbon like stools.? Discussed at length the pre-procedure,? prep, diet & medications as well as what to expect prior, during and after the procedure.?? Stressed the importance of good bowel prep.? Recommended the use of Vaseline or Calmoseptine OTC & baby wipes with bowel movements to promote comfort.? ?Patient verbalizes understanding and agrees to plan of care.? He was given the opportunity to ask questions and all questions answered.? We will see him after the procedure.? Medications: New polyethylene glycol 3350 (Miralax) As directed by gastroenterology department at [facility] 238 grams PO ONCE 238 grams 0RF Z12.11 - Encounter for screening for malignant neoplasm of colon bisacodyl (Dulcolax (bisacodyl)) 10 mg (2 x 5 mg) PO BEDTIME 180 tabs 4RF Coding Level of Care Code New Pt Level 3 (73706) Diagnoses Gastroesophageal reflux disease, unspecified whether esophagitis present K21.9 Esophagitis presence: esophagitis presence not specified Screen for colon cancer Z12.11 Slow transit constipation K59.01 Constipation type: slow transit constipation Time Spent (min) 40 Comment 30 minutes spent with patient and additional 10 minutes spent reviewing his records
== END 2024-07-10 10:19 | disposition home or self-care (01) ==
PROVIDERS: PCP Nurse Practitioner Primary Care; Visit Provider Nurse Practitioner Family
DX: K21.9 Gastro-esophageal reflux disease without esophagitis (principal); Z12.11 Encounter for screening for malignant neoplasm of colon; K59.01 Slow transit constipation
CPT/HCPCS: 99203

== ENCOUNTER → 2024-07-10 09:29 | Outpatient (BNVA) | payer OTHER, SELFPAY | PROVIDERS: PCP Nurse Practitioner Primary Care; Visit Provider Nurse Practitioner Family | DX: K21.9 Gastro-esophageal reflux disease without esophagitis (principal); K59.01 Slow transit constipation; Z12.11 Encounter for screening for malignant neoplasm of colon; Z80.0 Family history of malignant neoplasm of digestive organs | CPT/HCPCS: 99202 ==

== ENCOUNTER 2024-11-14 13:35 | Outpatient (AMB) | payer OTHER, SELFPAY ==
[2024-11-14 13:37] VITALS: BP 112/72; PULSE 86; RESP 16; TEMP 36.8; O2SAT 97; BMI 30.7
--- NOTE | 2024-11-14 13:37 | MHC.PC.OV ---
Vital Signs 11/14/24 13:37 Height 5 ft 11 in Weight 220 lb BMI 30.7 BP 112/72 Blood Pressure Location Rt brachial Position Sitting Respiration 16 Pulse 86 Pulse Source Pulse Oximeter Temp 98.2 F Temp Source Oral Pulse Oximetry (%) 97 Oxygen Delivery Method Room Air Intake Visit Reasons: Annual PE/Provider on vacation 10/08/24 Intake Note: Pt is here today for his PE Allergies No Known Allergies Allergy (Verified 11/14/24 13:57) Medication List - Last Reconciled 11/14/24 by Leslie Enciso MD bisacodyl (Dulcolax (bisacodyl)) 10 mg (2 x 5 mg) PO BEDTIME cholecalciferol (vitamin D3) 50 mcg PO DAILY omeprazole 20 mg PO DAILY paliperidone palmitate (Invega Sustenna) 156 mg IM Q30D polyethylene glycol 3350 (Miralax) 238 grams PO ONCE Tobacco use date assessed: 11/14/24 Dental Screening Dental Screen Date: 11/14/24 Did you have a dental visit in the last 12 months?: No Did you have a dental problem in the last 6 months where you did not have access to dental care?: No Was dental information given to patient?: No HPI Annual PE/Provider on vacation 10/08/24 HPI Details 49-year-old male here today for physical exam. He is currently being followed at [facility] for his schizophrenia, currently receiving Invega Sustenna IM q.week, which has been helping control his psychosis. He complains of recurrent heartburn, now controlled on omeprazole which he takes regularly. He is due for his initial screening colonoscopy has an appointment already scheduled for next month at [facility]. Has had COVID vaccines in the past but does not want to get the booster, due for his flu vaccine and Tdap.. Has remote history of diabetes mellitus, with last hemoglobin A1c at 5.5%. Currently not on any medication, has been following healthy diet and stays active. Complains of intermittent episodes of joint pains mainly in elbows and shoulders and fingers both hands Complaining of a pruritic rash in between the toes of left foot. [facility] Medical History Diarrhea Constipation Polyarthralgia Erectile dysfunction Schizophrenia GERD (gastroesophageal reflux disease) Surgical History No pertinent past surgical history Family History Father Colon cancer Social History Housing: Apartment Patient Tobacco Use Status: Never used Tobacco e-Cigarette/Vaping Use: Never Used service: No Current occupational status: unemployed Cognitive needs: No Hearing needs: No Vision needs: No Questionnaire PHQ-9 Over the last 2 weeks, how often have you been bothered by any of the following problems? 1. Little interest or pleasure in doing things: not at all 2. Feeling down, depressed, or hopeless: not at all 3. Trouble falling or staying asleep, or sleeping too much: several days 4. Feeling tired or having little energy: several days 5. Poor appetite or overeating: several days 6. Feeling bad about yourself - or that you are a failure or have let yourself or your family down: not at all 7. Trouble concentrating on things, such as reading the newspaper or watching television: not at all 8. Moving or speaking so slowly that other people could have noticed. Or the opposite - being so fidgety or restless that you have been moving around a lot more than usual: not at all 9. Thoughts that you would be better off or of hurting yourself in some way: not at all Total score: 3 Depression Screening Interpretation: Negative (Currently diagnosed with schizophrenia, followed by psychiatry TARAH AMBRIZ ) Depression Screening Done: Yes 60759 - PHQ-9 Billing: Yes Source: Developed by Drs. Chalino Rowan, Charlotte Hernandez, Keith Cifuentes and colleagues, with an educational deandre from [employer]. Thrive Questionnaire Date Thrive assessed: 11/14/24 I am a: Patient What is your living situation today?: I have a place to live, but I am worried about losing it in the future Within the past 12 months, did the food you bought not last and you didn't have the money to get more?: Often true Within the past 12 months, did you worry whether your food would run out before you got money to buy more?: Never true Do you have trouble paying for medicines?: No Do you have trouble getting transportation to medical appointments?: No Do you have trouble paying your heating and electricity bill?: No Do you have trouble taking care of your child, family member or friend?: No Do you have trouble with day-to-day activities such as bathing, preparing meals, shopping, managing finances, etc.?: No Are you currently unemployed and looking for a job?: Yes Are you interested in more education?: I choose not to answer this question Please select the resources that you would like help with: Job search/training Currently or been in a relationship where the following occur: No concerns reported THRIVE Score: 2 AUDIT C Alcohol Use Questionnaire (AUDIT-C) 1. How often do you have a drink containing alcohol?: Never Total Score: 0 SANCHEZ-7 AMB Questionnaire SANCHEZ-7 Date SANCHEZ - 7 assessed: 11/14/24 Feeling nervous, anxious, or on edge: 0 = Not at all Not being able to stop or control worryin = Not at all Worrying too much about different things: 0 = Not at all Trouble relaxin = Not at all Being so restless that it is hard to sit still: 0 = Not at all Becoming easily annoyed or irritable: 0 = Not at all Feeling afraid as if something awful might happen: 0 = Not at all Total SANCHEZ-7 score (0-4 normal; 5-9 mild; 10-14 moderate; 15-21 severe): 0 Source: Developed by Drs. Chalino Rowan, Charlotte Hernandez, Keith Cifuentes and colleagues, with an educational deander from [employer]. SANCHEZ-7 Assessment Billing SANCHEZ-7 Assessment Tool: SANCHEZ-7 Assessment 23908 Review of Systems Const Reports no additional complaints Eyes Details: has eye appt in 12/07/2024 at [facility] ENT Reports no additional complaints Card Reports no additional complaints Resp Reports no additional complaints GI Denies abdominal pain, Denies belching, Denies melena, Denies change in bowel habits, Reports constipation (Occasional), Denies excessive flatus and Denies heartburn (Controlled on omeprazole) Reports no additional complaints Musc Reports no additional complaints Skin/Breast Details: Complains of itching in between the toes on left foot Neuro Reports no additional complaints Psych Reports no additional complaints Endo Reports no additional complaints Charli/Lymph Reports no additional complaints Aller/Immun Reports no additional complaints Physical exam (Primary Care) Vital Signs: Last Vital Signs Temp 98.2 F 11/14/24 13:37 Pulse 86 11/14/24 13:37 Resp 16 11/14/24 13:37 BP 112/72 11/14/24 13:37 Pulse Ox 97 11/14/24 13:37 Oxygen Delivery Method Room Air 11/14/24 13:37 BMI result Body Mass Index 30.7 Tobacco/Smoking Status: Tobacco use Status Tobacco use date assessed 11/14/24 11/14/24 13:38 Patient Tobacco Use Status Never used Tobacco 11/14/24 13:38 e-Cigarette/Vaping Use Never Used 11/14/24 13:38 PHQ-9: PHQ-9 Score PHQ-9: Total score 8 11/14/24 13:38 Depression Screening Interpretation: Negative (Currently diagnosed with schizophrenia, followed by psychiatry TARAH AMBRIZ ) Thrive Assessment: Date of Thrive Assessment Date Thrive assessed 11/14/24 11/14/24 13:38 Currently or been in a relationship where the following occur: No concerns reported Const General: comfortable, no acute distress and alert Orientation/consciousness: patient oriented x3 HENMT Ears: external ears normal General nose exam: Normal external nose present and No nasal discharge present Mouth: Normal oral and palatal mucosa present, oropharynx normal and moist mucous membranes Eyes General: appearance normal, both eyes and all related structures Neck Neck: Yes full ROM, Yes no lymphadenopathy and Yes supple Chest Chest palpation & inspection: normal inspection of the chest and normal palpation of entire chest wall Resp Effort & Inspection: normal respiratory effort and able to speak in complete sentences Auscultation: clear to auscultation bilaterally Cardio Rate: regular rate Rhythm: regular rhythm Heart sounds: S1 normal heart sound present and S2 normal heart sound present GI Palpation (GI): Soft to palpation, nontender and no masses Auscultation: normal bowel sounds Back/Spine/Pelvis Back: No back tenderness Skin Other: White patches noted on interdigital webs on left foot Neuro General: patient oriented x3, gait normal, tone normal, moves all extremities, Normal light touch and pain sensation and no focal motor deficits Cranial nerves: Yes CN's II-XII intact bilaterally Cognition (Neuro): normal cognition Extrem General: Yes full ROM, Yes no joint enlargement, Yes no clubbing, cyanosis or edema and Yes no calf tenderness Psych Appearance: grossly normal and well kempt Mental Status: mental status grossly normal Speech and movement: Normal speech and movement present Affect: normal affect Attitude: cooperative Office Procedures Flu Questionnaire Does the patient have a severe egg allergy?: No Does the patient have severe life threatening allergies?: No Does the patient have a fever or illness today?: No Has the patient ever had Guillain-[place] Syndrome?: No Has the patient ever had any past reaction to a flu shot?: No Immunizations Fluarix Triv 1113-2177 (PF) 45 mcg (15 mcg x 3)/0.5 mL IM syringe Performing Provider: Leslie Enciso MD Performing Location: [facility] Administered by: Richa Sanderson CMA on 11/14/24 14:24 Dose Route Admin Location Dispensed Lot Number Expiration Date [facility] Count Team Clerk 0.5 mL IM Left Deltoid 0.5 mL [id number] 03/25/25 [id number] [employer] VIS Given Date VIS Provided VIS Publication Date 11/14/24 Single Vaccine 21 Eligibility Eligibility Date Funding Source Not [facility] Eligible 11/14/24 Private Coding Level of Care Code Est Pt Prev Care 40-64y(07985) Diagnoses Annual visit for general adult medical examination with abnormal findings Z00.01 Gastroesophageal reflux disease, unspecified whether esophagitis present K21.9 Esophagitis presence: esophagitis presence not specified Polyarthralgia M25.50 Tinea pedis of left foot B35.3 Encounter for counseling regarding advance directives Z71.89 Additional Codes SANCHEZ-7 Assessment Billing - SANCHEZ-7 Assessment Tool: SANCHEZ-7 Assessment 25369 ([id number]) PHQ-9 - 70788 - PHQ-9 Billing: Yes ([id number]) Assessment & Plan Assessment & Plan (1) Annual visit for general adult medical examination with abnormal findings: Code(s): Z00.01 - Encounter for general adult medical examination with abnormal findings Plan: Will check appropriate labs. Recommended dental visit every 6 months and regular eye exams, at least every 2 years, has an appointment already scheduled with [facility] for 12/08/2019. Take adequate calcium in diet and vitamin-D 3 at 2000 IU per cap once a day, in addition to weight-bearing exercises to help maintain good muscle tone and weight control. Instructed to do self-testicular exam check for any mass. Has had COVID vaccine in the past does not want to get booster, flu vaccine given today and will give Tdap on next visit. He has an appointment for his initial colonoscopy screening scheduled for next month at [facility]: (2) GERD (gastroesophageal reflux disease): Comment: . Code(s): K21.9 - Gastro-esophageal reflux disease without esophagitis Category: Medical Qualifiers: Esophagitis presence: esophagitis presence not specified Qualified Code(s): K21.9 - Gastro-esophageal reflux disease without esophagitis Plan: currently on omeprazole 20 mg once a day (3) Polyarthralgia: Code(s): M25.50 - Pain in unspecified joint Category: Medical Plan: May take [id number] Tylenol arthritis every 12 hours as needed for pain, or massaged diclofenac gel to affected joints 4 times a day as needed (4) Tinea pedis of left foot: Code(s): B35.3 - Tinea pedis Category: Medical Plan: Apply terbinafine cream twice a day to interdigital webs on left after washing and drying feet for at least 1-2 weeks. Clean inside of shoes well, may spray with an antifungal spray prevent reinforced (5) Encounter for counseling regarding advance directives: Code(s): Z71.89 - Other specified counseling Plan: Initiated the conversation about Advanced Directives. Advanced Directives help patients prepare for current and future decisions about their medical treatment and place of care. Discussed with patient that it is a process where a patients current condition and prognosis are reviewed, their wishes for information regarding their illness are elicited, and likely medical dilemmas are presented and options discussed. Healthcare proxy form completed today The form can be amended as needed, reviewed yearly and make changes as needed Orders: Orders Alanine Aminotransferase Today B35.3 - Tinea pedis, E55.9 - Vitamin D deficiency, unspecified, K21.9 - Gastro-esophageal reflux disease without esophagitis, M25.50 - Pain in unspecified joint, Z00.01 - Encounter for general adult medical examination with abnormal findings, Z13.1 - Encounter for screening for diabetes mellitus, Z13.220 - Encounter for screening for lipoid disorders, Z71.89 - Other specified counseling Aspartate Amino Transferase Today B35.3 - Tinea pedis, E55.9 - Vitamin D deficiency, unspecified, K21.9 - Gastro-esophageal reflux disease without esophagitis, M25.50 - Pain in unspecified joint, Z00.01 - Encounter for general adult medical examination with abnormal findings, Z13.1 - Encounter for screening for diabetes mellitus, Z13.220 - Encounter for screening for lipoid disorders, Z71.89 - Other specified counseling Basic Metabolic Panel Fasting Today B35.3 - Tinea pedis, E55.9 - Vitamin D deficiency, unspecified, K21.9 - Gastro-esophageal reflux disease without esophagitis, M25.50 - Pain in unspecified joint, Z00.01 - Encounter for general adult medical examination with abnormal findings, Z13.1 - Encounter for screening for diabetes mellitus, Z13.220 - Encounter for screening for lipoid disorders, Z71.89 - Other specified counseling Influenza [id number] Immunization Today Z23 - Encounter for immunization Vitamin D 25-OH Total Today B35.3 - Tinea pedis, E55.9 - Vitamin D deficiency, unspecified, K21.9 - Gastro-esophageal reflux disease without esophagitis, M25.50 - Pain in unspecified joint, Z00.01 - Encounter for general adult medical examination with abnormal findings, Z13.1 - Encounter for screening for diabetes mellitus, Z13.220 - Encounter for screening for lipoid disorders, Z71.89 - Other specified counseling Lipid Panel Today B35.3 - Tinea pedis, E55.9 - Vitamin D deficiency, unspecified, K21.9 - Gastro-esophageal reflux disease without esophagitis, M25.50 - Pain in unspecified joint, Z00.01 - Encounter for general adult medical examination with abnormal findings, Z13.1 - Encounter for screening for diabetes mellitus, Z13.220 - Encounter for screening for lipoid disorders, Z71.89 - Other specified counseling Medications: New terbinafine HCl 1% (Lamisil AT) 1 appl topical BID 30 grams 0RF B35.3 - Tinea pedis Refilled omeprazole 20 mg PO DAILY 90 caps 3RF
== END 2024-11-14 14:51 | disposition home or self-care (01) ==
PROVIDERS: PCP Internal Medicine; Visit Provider Internal Medicine
DX: Z00.01 Encounter for general adult medical examination with abnormal findings (principal); K21.9 Gastro-esophageal reflux disease without esophagitis; M25.50 Pain in unspecified joint; B35.3 Tinea pedis; Z71.89 Other specified counseling; Z23 Encounter for immunization

== ENCOUNTER → 2024-11-14 13:35 | Outpatient (BNVA) | payer OTHER, SELFPAY | PROVIDERS: PCP Internal Medicine; Visit Provider Internal Medicine | DX: Z00.01 Encounter for general adult medical examination with abnormal findings (principal); Z23 Encounter for immunization; K21.9 Gastro-esophageal reflux disease without esophagitis; M25.50 Pain in unspecified joint; B35.3 Tinea pedis; Z71.89 Other specified counseling | CPT/HCPCS: 90471; 90656; 96127; 99396 ==

== ENCOUNTER 2024-11-19 10:18 | Outpatient (REF) | payer OTHER, SELFPAY ==
[2024-11-19 14:07] LABS: Alanine Aminotransferase 25 U/L (0-40); Anion Gap 11 (12-20); Aspartate Amino Transferase 41 U/L (5-37); Blood Urea Nitrogen 9 mg/dL (9-16); Calcium 9.2 mg/dL (8.4-10.2); Carbon Dioxide 28 mmol/L (22-29); Chloride 106 mmol/L (96-108); Cholesterol 192 mg/dL (<200); Estimated Glomerular Filt Rate > 60; Glucose Fasting 85 mg/dL (60-99); HDL Cholesterol 37 mg/dL (>40); LDL Cholesterol Calculated 128 mg/dL (<100); Potassium 4.3 mmol/L (3.3-5.1); Sodium 141 mmol/L (135-145); Triglycerides 137 mg/dL (<150)
[2024-11-19 14:24] LABS: Vitamin D 25-OH Total 92.1 ng/mL (>30)
== END 2024-11-19 10:19 | disposition home or self-care (01) ==
LOC: HO.HMGCLDS 10:18
PROVIDERS: PCP Internal Medicine; Visit Provider Internal Medicine
DX: Z00.01 Encounter for general adult medical examination with abnormal findings (principal); B35.3 Tinea pedis; M25.50 Pain in unspecified joint; E55.9 Vitamin D deficiency, unspecified; K21.9 Gastro-esophageal reflux disease without esophagitis; Z71.89 Other specified counseling; Z13.220 Encounter for screening for lipoid disorders; Z13.1 Encounter for screening for diabetes mellitus
CPT/HCPCS: 36415; 80048; 80061; 82306; 84450; 84460

== ENCOUNTER 2024-12-14 11:39 | Day surgery (SDC) | payer OTHER, SELFPAY ==
[2024-12-12 13:24] VITALS: BMI 30.7
--- NOTE | 2024-12-13 09:54 | HO.ANESPROP2 ---
Documented by User: Kayla Stevenson NP 12/13/24 09:56 HPI - Anesthesia Eval Consult details Narrative: 49yo M for Colonoscopy PMFSH Active Problems Active Problems: All Active Problems Vitamin D deficiency (Acute) Left shoulder pain (Acute) Right shoulder pain (Acute) Right elbow pain (Acute) Diabetes type 2, controlled (Acute) Tinea pedis of left foot (Acute) Polyarthralgia (Acute) Erectile dysfunction (Acute) GERD (gastroesophageal reflux disease) (Acute) Past Medical History Medical History Diabetes Tinea pedis of left foot Diarrhea Constipation Polyarthralgia Erectile dysfunction Schizophrenia GERD (gastroesophageal reflux disease) Family History Family History Father Colon cancer Surgical History Surgical History No pertinent past surgical history Social History Social History Housing: Apartment Patient Tobacco Use Status: Never used Tobacco e-Cigarette/Vaping Use: Never Used Use of substances other than those prescribed or required for medical reasons: No Are you DNR?: No Advance Directives: No Advance Directives Information Provided: Yes service: No Current occupational status: unemployed Cognitive needs: No Hearing needs: No Vision needs: No Meds Allergies Allergy/AdvReac Type Severity Reaction Status Date / Time No Known Allergies Allergy Verified 11/14/24 13:57 Home Medications ?Medication ?Instructions ?Recorded ?Confirmed ?Last Taken ?Type paliperidone palmitate 156 mg/mL 156 mg IM Q30D 09/15/23 12/14/24 Unknown History intramuscular syringe (Invega Sustenna) cholecalciferol (vitamin D3) 50 50 mcg PO DAILY 07/10/24 12/14/24 Unknown History mcg (2,000 unit) capsule Exam Height,Weight and Vital Signs: Height 5 ft 11 in Weight 99.79 kg Assessment and Plan Assessment Anesthesia Assessment: Chart Reviewed Documented by User: Demi Daigle MD 12/14/24 13:25 PMF Active Problems Active Problems: All Active Problems Vitamin D deficiency (Acute) Left shoulder pain (Acute) Right shoulder pain (Acute) Right elbow pain (Acute) Diabetes type 2, controlled (Acute)- Patient states does not have DM any more. No meds Tinea pedis of left foot (Acute) Polyarthralgia (Acute) Erectile dysfunction (Acute) GERD (gastroesophageal reflux disease) (Acute) Past Medical History Medical History Diabetes Tinea pedis of left foot Diarrhea Constipation Polyarthralgia Erectile dysfunction Schizophrenia GERD (gastroesophageal reflux disease) Family History Family History Father Colon cancer Family history of problems with anesthesia: No Surgical History Surgical History No pertinent past surgical history History of Problems with Anesthesia: No Social History Social History Housing: Apartment Patient Tobacco Use Status: Never used Tobacco e-Cigarette/Vaping Use: Never Used Use of substances other than those prescribed or required for medical reasons: No Are you DNR?: No Advance Directives: No Advance Directives Information Provided: Yes service: No Current occupational status: unemployed Cognitive needs: No Hearing needs: No Vision needs: No Meds Allergies Allergy/AdvReac Type Severity Reaction Status Date / Time No Known Allergies Allergy Verified 11/14/24 13:57 Home Medications ?Medication ?Instructions ?Recorded ?Confirmed ?Last Taken ?Type paliperidone palmitate 156 mg/mL 156 mg IM Q30D 09/15/23 12/14/24 Unknown History intramuscular syringe (Invega Sustenna) cholecalciferol (vitamin D3) 50 50 mcg PO DAILY 07/10/24 12/14/24 Unknown History mcg (2,000 unit) capsule Exam Height,Weight and Vital Signs: Height 5 ft 11 in Weight 99.79 kg Vital Signs Temp Pulse Resp BP Pulse Ox O2 Del Method 12/14/24 12:55 98.1 F 71 20 125/79 96 Room Air Airway Mallampati Class: II TM Dist: >3cm Neck ROM: Full Loose/Missing/Broken Teeth: No Heart: RRR Lungs: CTAB Assessment and Plan Assessment Anesthesia Assessment: Anesthesia Plan Discussed and Chart Reviewed Final Anesthetic Review Family History of Problems with Anesthesia: No History of Problems with Anesthesia: No NPO: Yes ASA Class: II Final Preanesthetic Review: No Changes in Pt Med Stat, Meds/Allgs Chart Reviewed, Consent Obtained/Reviewed and Anes Risks/Benef Reviewed Patient Risk: Intermediate Procedure Risk: Low Assessment/Block/Sedation in SS: Assess/Block/Sedation-SS Anesthetic Plan Anesthetic Plan: TIVA Disposition: Standard PACU
--- NOTE | 2024-12-14 12:22 | MHC.SHP ---
Pre-Procedural Eval Section A - 24 Hr Update-Section A only Date of Service: 12/14/24 The patient is an INPATIENT: No The patient has been examined within 24 hours of the surgical procedure. The History & Physical has been completed within 30 days and I have reviewed it.: No Section B - Complete if H&P > 30 days Chief Complaint: screening, family history of colon cancer Relevant Family History (Specify if Yes): Yes Relevant Social History: None Present Medications: see Short Stay Collaborative assessment Medical History: Significant History (Diarrhea Constipation Polyarthralgia Erectile dysfunction Schizophrenia GERD (gastroesophageal reflux disease)) History of Previous Operations: No relevant previous surgery Allergies: Allergies Allergy/AdvReac Type Severity Reaction Status Date / Time No Known Allergies Allergy Verified 11/14/24 13:57 Review of Systems Sugical H&P ROS: Negative: Constitution, Cardiovascular, Respiratory and Gastrointestinal Exam Surgical H&P Exam: Normal: Heart, Normal: Lungs and Normal: Extremities Plan Diagnosis/Plan: Unchanged I have reviewed the history and physical and performed a pertinent physical examination on my patient. No changes have occurred unless specified. Time Spent With Patient Time: Total time managing care of this patient today ____ minutes.
[2024-12-14 12:45] VITALS: BMI 30.2
[2024-12-14 12:55] VITALS: BP 125/79; PULSE 71; RESP 20; TEMP 36.7; O2SAT 96
[2024-12-14] MEDS: Lactated Ringers 1,000 ML 100 ML IVCONT (13:08)
--- NOTE | 2024-12-14 13:56 | HO.OPN-COLON ---
Colonoscopy Operative Note Operative Note Date of Service: 12/14/24 Narrative: COLONOSCOPY TILL CECUM Pre-op diagnosis: Colon cancer screening (first colon), family history of colon cancer (brother in his 50's). Post-op diagnosis:? Diverticulosis. Endoscopist:? Willis Wadsworth MD Anesthesia:?MAC Consent: Indications for the procedure and potential complications of bleeding, perforation, reaction to medications and missed diagnosis were discussed with the patient and informed consent was obtained. Instrument: Olympus CF H 190 L variable stiffness adult colonoscope Monitoring: Vital signs and clinical assessment, intermittent blood pressure monitoring, continuous EKG monitoring, Pulse oximetry and Carbon Dioxide monitoring were done throughout the procedure. Please see anesthesia flowsheet. Colon withdrawl time was 15 minutes. Procedure: The patient was placed in the left lateral decubitis position and pre-procedure medications were administered. After a digital rectal examination of the ano-rectum, the video colonoscope was inserted into the rectum and advanced through the colon to the cecum. The colonoscope was slowly withdrawn in a retrograde panoramic fashion and the colon mucosa was carefully examined including a retroflexed view of the rectum. Findings and interventions are described below. Procedure Difficulty: Colon was long and tortuous and there was some loop formation Findings: Terminal Ileum: Not evaluated Cecum: Normal Ascending Colon: Normal Transverse Colon: Normal Descending Colon: Normal Sigmoid Colon: Moderate diverticulosis Rectum: Normal Ano-rectum: Normal Colon preparation: Excellent after some irrigation. [place] Bowel Preparation Scale Right colon; 3 Transverse colon: 3 Left colon; 3 (0 = Unprepared colon segment with mucosa not seen due to solid stool that cannot be cleared. 1 = Portion of mucosa of the colon segment seen, but other areas of the colon segment not well seen due to staining, residual stool and/or opaque liquid. 2 = Minor amount of residual staining, small fragments of stool and/or opaque liquid, but mucosa of colon segment seen well. 3 = Entire mucosa of colon segment seen well with no residual staining, small fragments of stool or opaque liquid) Impression and Post Procedure Diagnosis: Colonoscopy Findings: No polyps were detected Moderate diverticulosis seen in the sigmoid colon Plan: Repeat Colonoscopy in 5 years due to positive family history - Patient was placed on the colonoscopy recall list. Above findings were reviewed with the patient and relevant handouts were given and the discharge area.
[2024-12-14 13:59] VITALS: BP 93/54; PULSE 89; RESP 16; TEMP 36.1; O2SAT 97
[2024-12-14 14:24] VITALS: BP 114/75; PULSE 75; RESP 18; TEMP 36.2; O2SAT 100
== END 2024-12-14 14:46 | disposition home or self-care (01) ==
PROVIDERS: PCP Internal Medicine; Visit Provider Internal Medicine Gastroenterology
PROC: 0DJD8ZZ Inspection of Lower Intestinal Tract, Via Natural or Artificial Opening Endoscopic (ICD-10-PCS; CPT 45378; principal; 2024-12-14 13:10)
DX: Z12.11 Encounter for screening for malignant neoplasm of colon (principal); K57.30 Diverticulosis of large intestine without perforation or abscess without bleeding; K56.2 Volvulus; Z80.0 Family history of malignant neoplasm of digestive organs; E11.9 Type 2 diabetes mellitus without complications; K21.9 Gastro-esophageal reflux disease without esophagitis; E55.9 Vitamin D deficiency, unspecified; Z79.899 Other long term (current) drug therapy
CPT/HCPCS: 45378; J2003; J2704

== ENCOUNTER → 2024-12-14 11:39 | Outpatient (BNV) | payer OTHER, SELFPAY | PROVIDERS: PCP Internal Medicine; Visit Provider Internal Medicine Gastroenterology | DX: Z12.11 Encounter for screening for malignant neoplasm of colon (principal); Z80.0 Family history of malignant neoplasm of digestive organs; K57.30 Diverticulosis of large intestine without perforation or abscess without bleeding | CPT/HCPCS: 45378 ==

== ENCOUNTER 2025-04-17 10:40 | Outpatient (AMB) | payer OTHER, SELFPAY ==
--- NOTE | 2025-04-17 10:43 | MHC.OFFVIS ---
Vital Signs 04/17/25 10:44 Height 5 ft 11 in Weight 215 lb BMI 30.0 BP 124/74 Blood Pressure Location Rt brachial Position Sitting Pulse 86 Pulse Source Pulse Oximeter Pulse Oximetry (%) 98 Oxygen Delivery Method Room Air Intake Visit Reasons: s/p colo Intake Note: Est pt for mgmt of diverticulosis. PCP requested FUV. CC; C.O. intermittent coughing up blood and nausea with certain ROM. Pt denies any additional concerns and states that these sx have been present since prior to the procedure. Tv Production Assistant Required: No Accompanied by: Self / Same As Patient Allergies No Known Allergies Allergy (Verified 04/17/25 10:44) HPI HPI s/p colo: Details: LAST VISIT: GERD (gastroesophageal reflux disease) Screen for colon cancer Constipation Plan Patient denies any GI, cardiac or respiratory symptoms.? However patient reports that since last year he has been on omeprazole for GERD and has been working for him. Occasional constipation will send a script for Dulcolax. Patient never had anesthesia in the past. Family history of CRC.? Denies any history of sleep apnea.? No history infectious diseases in the past or present.? Not on any anticoagulation therapy.? Patient denies melena, hematochezia, unintentional weight loss or ribbon like stools.? Discussed at length the pre-procedure,? prep, diet & medications as well as what to expect prior, during and after the procedure.?? Stressed the importance of good bowel prep.? Recommended the use of Vaseline or Calmoseptine OTC & baby wipes with bowel movements to promote comfort.? ?Patient verbalizes understanding and agrees to plan of care.? He was given the opportunity to ask questions and all questions answered.? We will see him after the procedure.? New polyethylene glycol 3350 (Miralax) As directed by gastroenterology department at [facility] 238 grams PO ONCE 238 grams 0RF Z12.11 bisacodyl (Dulcolax (bisacodyl)) 10 mg (2 x 5 mg) PO BEDTIME 180 tabs 4RF COLONOSCOPY Findings: Terminal Ileum: Not evaluated Cecum: Normal Ascending Colon: Normal Transverse Colon: Normal Descending Colon: Normal Sigmoid Colon: Moderate diverticulosis Rectum: Normal Ano-rectum: Normal Colon preparation: Excellent after some irrigation. [place] Bowel Preparation Scale Right colon; 3 Transverse colon: 3 Left colon; 3 (0 = Unprepared colon segment with mucosa not seen due to solid stool that cannot be cleared. 1 = Portion of mucosa of the colon segment seen, but other areas of the colon segment not well seen due to staining, residual stool and/or opaque liquid. 2 = Minor amount of residual staining, small fragments of stool and/or opaque liquid, but mucosa of colon segment seen well. 3 = Entire mucosa of colon segment seen well with no residual staining, small fragments of stool or opaque liquid) Impression and Post Procedure Diagnosis: Colonoscopy Findings: No polyps were detected Moderate diverticulosis seen in the sigmoid colon Plan: Repeat Colonoscopy in 5 years due to positive family history - Patient was placed on the colonoscopy recall list. TODAY'S VISIT: Patient is here today for follow-up and to discuss colonoscopy results. Patient denies ill effects from the prep, anesthesia or procedure itself. Patient reports to be feeling fairly well. No polyps found, however due to family history of CRC patient was placed on recall list to repeat colonoscopy in 5 years. Patient reports to be moving his bowels better now. He tried Dulcolax, however it gave him diarrhea so he stopped. He is trying to eat healthy. Includes vegetables in his diet. Patient denies melena, hematochezia. Reports that omeprazole has been working for him for reflux. Patient denies dyspepsia, dysphagia or odynophagia. Denies any GI concerning symptoms [facility] Medical History Diabetes Tinea pedis of left foot Diarrhea Constipation Polyarthralgia Erectile dysfunction Schizophrenia GERD (gastroesophageal reflux disease) Surgical History No pertinent past surgical history Family History Father Colon cancer Social History Housing: Apartment Patient Tobacco Use Status: Never used Tobacco e-Cigarette/Vaping Use: Never Used service: No Current occupational status: unemployed Cognitive needs: No Hearing needs: No Vision needs: No Review of Systems Const Denies weight gain and Denies weight loss ENT Reports no additional complaints, Denies dysphagia and Denies odynophagia Card Reports no additional complaints Resp Reports no additional complaints GI Denies abdominal pain, Denies belching, Denies melena, Denies bloating, Denies change in bowel habits, Denies constipation (Occasional), Denies dysphagia, Denies excessive flatus, Denies dyspepsia, Denies heartburn, Denies diarrhea, Denies loose stools, Denies nausea, Denies odynophagia and Denies vomiting Reports no additional complaints Musc Reports no additional complaints Neuro Reports no additional complaints Psych Reports no additional complaints Endo Reports no additional complaints Physical Exam Vital Signs: Last Vital Signs Pulse 86 04/17/25 10:44 BP 124/74 04/17/25 10:44 Pulse Ox 98 04/17/25 10:44 Oxygen Delivery Method Room Air 04/17/25 10:44 BMI result Body Mass Index 30.0 Const General: healthy appearing and no acute distress Nutritional Appearance: obese Orientation/consciousness: patient oriented x3 Resp Effort & Inspection: normal respiratory effort, able to speak in complete sentences, no tracheal deviation and symmetric chest movement Auscultation: clear to auscultation bilaterally Cardio Rate: regular rate GI Inspection: Yes normal to inspection, No distended and Yes obesity Palpation (GI): Soft to palpation, not firm, nontender and No hepatosplenomegaly present Auscultation: normal bowel sounds General: Yes no CVA tenderness Back/Spine/Pelvis Back: no CVA tenderness Skin General skin exam: elasticity normal, turgor normal and dry skin Neuro General: patient oriented x3 Psych Appearance: grossly normal Mental Status: mental status grossly normal Assessment & Plan Assessment & Plan (1) GERD (gastroesophageal reflux disease): Comment: . Code(s): K21.9 - Gastro-esophageal reflux disease without esophagitis Category: Medical Qualifiers: Esophagitis presence: esophagitis presence not specified Qualified Code(s): K21.9 - Gastro-esophageal reflux disease without esophagitis (2) Status post colonoscopy: Code(s): Z98.890 - Other specified postprocedural states Plan Colonoscopy in 5 years, sooner if clinically necessary. Family history of CRC. Continue omeprazole. Avoid dietary triggers and late night snacking. Staying upright for minimum 3 hours after meals discussed with patient patient will follow-up in our office as needed. He will call us if you have any GI concerning symptoms. Patient is agreeable to this plan and verbalizes understanding of instructions. He was given the opportunity to ask questions and all questions answered. Thank you for allowing me to participate in his care Coding Level of Care Code Est Pt Level 3 (34778) Diagnoses Gastroesophageal reflux disease, unspecified whether esophagitis present K21.9 Esophagitis presence: esophagitis presence not specified Status post colonoscopy Z98.890 Time Spent (min) 25 Comment 15 minutes spent with patient and additional 10 minutes spent reviewing his records
[2025-04-17 10:44] VITALS: BP 124/74; PULSE 86; O2SAT 98
== END 2025-04-17 11:16 | disposition home or self-care (01) ==
LOC: HO.HGI 10:41
PROVIDERS: PCP Internal Medicine; Visit Provider Nurse Practitioner Family
DX: K21.9 Gastro-esophageal reflux disease without esophagitis (principal); Z98.890 Other specified postprocedural states
CPT/HCPCS: 99213

== ENCOUNTER → 2025-04-17 10:40 | Outpatient (BNVA) | payer OTHER, SELFPAY | PROVIDERS: PCP Internal Medicine; Visit Provider Nurse Practitioner Family | DX: K21.9 Gastro-esophageal reflux disease without esophagitis (principal); Z98.890 Other specified postprocedural states | CPT/HCPCS: 99212 ==

== ENCOUNTER 2025-07-26 08:57 | Outpatient (REF) | payer OTHER, SELFPAY ==
[2025-07-26 11:03] LABS: Alanine Aminotransferase 16 U/L (0-40); Anion Gap 10 (12-20); Aspartate Amino Transferase 24 U/L (5-37); Blood Urea Nitrogen 11 mg/dL (9-16); Calcium 8.7 mg/dL (8.4-10.2); Carbon Dioxide 28 mmol/L (22-29); Chloride 106 mmol/L (96-108); Cholesterol 183 mg/dL (<200); Estimated Glomerular Filt Rate > 60; HDL Cholesterol 37 mg/dL (>40); Potassium 4.0 mmol/L (3.3-5.1); Sodium 140 mmol/L (135-145); Triglycerides 89 mg/dL (<150)
== END 2025-07-26 08:58 | disposition home or self-care (01) ==
LOC: HO.HMGCLDS 08:57
PROVIDERS: PCP Internal Medicine; Visit Provider Internal Medicine
DX: E11.9 Type 2 diabetes mellitus without complications (principal); K21.9 Gastro-esophageal reflux disease without esophagitis; E55.9 Vitamin D deficiency, unspecified
CPT/HCPCS: 36415; 80048; 80061; 82306; 83036; 84450; 84460

== ENCOUNTER 2025-08-16 09:01 | Outpatient (REF) | payer OTHER, SELFPAY ==
[2025-08-17 07:43] LABS: Hepatitis B Surface Ab Qnt 7 mIU/mL (> OR = 10)
[2025-08-17 14:18] LABS: Rubeola IgG (Measles) >300.00 AU/mL
[2025-08-19 09:03] LABS: TS Negative Control Passed; TS Panel A 3; TS Panel B 0; TS Positive Control Passed; TSpotTB Negative (Negative)
== END 2025-08-16 09:02 | disposition home or self-care (01) ==
LOC: HO.HMGCLDS 09:01
PROVIDERS: PCP Internal Medicine; Visit Provider Internal Medicine
DX: Z01.84 Encounter for antibody response examination (principal); Z11.1 Encounter for screening for respiratory tuberculosis
CPT/HCPCS: 36415; 86317; 86481; 86735; 86762; 86765; 86787

== ENCOUNTER 2025-08-29 09:34 | Outpatient (REF) | payer OTHER, SELFPAY ==
[2025-08-29 13:24] LABS: Appearance Urine Clear; Glucose Urine UA Negative (Negative); PH 6.5 (5.0-9.0); Specific Gravity - Urine 1.025 (1.005-1.025)
[2025-08-29 13:45] LABS: PSA,Total (Free>4and<10) 0.50 ng/mL (0.00-4.00)
== END 2025-08-29 09:35 | disposition home or self-care (01) ==
LOC: HO.HMGCLDS 09:34
PROVIDERS: PCP Internal Medicine; Visit Provider Internal Medicine
DX: Z23 Encounter for immunization (principal); E78.5 Hyperlipidemia, unspecified; E11.9 Type 2 diabetes mellitus without complications; R32 Unspecified urinary incontinence
CPT/HCPCS: 36415; 81003; 82043; 82570; 84153; 90471; 90746; 99212

== ENCOUNTER 2025-08-29 09:34 | Outpatient (AMB) | payer OTHER, SELFPAY ==
[2025-08-29 10:01] VITALS: BP 118/72; PULSE 81; TEMP 36.7; O2SAT 98; BMI 30.4
--- NOTE | 2025-08-29 10:01 | MHC.PC.OV ---
Vital Signs 08/29/25 10:01 Height 5 ft 11 in Weight 218 lb BMI 30.4 BP 118/72 Blood Pressure Location Rt brachial Position Sitting Pulse 81 Pulse Source Pulse Oximeter Temp 98.0 F Temp Source Oral Pulse Oximetry (%) 98 Oxygen Delivery Method Room Air Intake Visit Reasons: lab result, incontinent of urine Intake Note: Pt is here today to discuss lab results incontience of urine/ Also paperwork for school [employer] Required: No Allergies No Known Allergies Allergy (Verified 08/29/25 10:19) Medication List - Last Reconciled 08/29/25 by Leslie Enciso MD cholecalciferol (vitamin D3) 50 mcg PO DAILY omeprazole 20 mg PO DAILY paliperidone palmitate (Invega Sustenna) 156 mg IM Q30D Tobacco use date assessed: 08/29/25 Dental Screening Dental Screen Date: 08/29/25 Did you have a dental visit in the last 12 months?: No Did you have a dental problem in the last 6 months where you did not have access to dental care?: No PFSH Medical History (Updated 08/29/25 @ 10:46 by Leslie Enciso MD) Urinary incontinence Dyslipidemia Diabetes Tinea pedis of left foot Diarrhea Constipation Polyarthralgia Erectile dysfunction Schizophrenia GERD (gastroesophageal reflux disease) Surgical History No pertinent past surgical history Family History Father Colon cancer Social History Housing: Apartment Patient Tobacco Use Status: Never used Tobacco e-Cigarette/Vaping Use: Never Used service: No Current occupational status: unemployed Cognitive needs: No Hearing needs: No Vision needs: No Questionnaire Thrive Questionnaire Date Thrive assessed: 11/14/24 I am a: Patient What is your living situation today?: I have a place to live, but I am worried about losing it in the future Within the past 12 months, did the food you bought not last and you didn't have the money to get more?: Often true Within the past 12 months, did you worry whether your food would run out before you got money to buy more?: Never true Do you have trouble paying for medicines?: No Do you have trouble getting transportation to medical appointments?: No Do you have trouble paying your heating and electricity bill?: No Do you have trouble taking care of your child, family member or friend?: No Do you have trouble with day-to-day activities such as bathing, preparing meals, shopping, managing finances, etc.?: No Are you currently unemployed and looking for a job?: Yes Are you interested in more education?: I choose not to answer this question Please select the resources that you would like help with: Job search/training Currently or been in a relationship where the following occur: No concerns reported THRIVE Score: 2 SANCHEZ-7 AMB Questionnaire SANCHEZ-7 Date SANCHEZ - 7 assessed: 11/14/24 Source: Developed by Drs. Chalino Rowan, Charlotte Hernandez, Keith Cifuentes and colleagues, with an educational deandre from [employer]. Physical exam (Primary Care) Vital Signs: Last Vital Signs Temp 98.0 F 08/29/25 10:01 Pulse 81 08/29/25 10:01 BP 118/72 08/29/25 10:01 Pulse Ox 98 08/29/25 10:01 Oxygen Delivery Method Room Air 08/29/25 10:01 BMI result Body Mass Index 30.4 Tobacco/Smoking Status: Tobacco use Status Tobacco use date assessed 08/29/25 08/29/25 10:07 Patient Tobacco Use Status Never used Tobacco 08/29/25 10:02 e-Cigarette/Vaping Use Never Used 08/29/25 10:02 Thrive Assessment: Date of Thrive Assessment Date Thrive assessed 11/14/24 08/29/25 10:02 Currently or been in a relationship where the following occur: No concerns reported Immunizations Engerix-B (PF) 20 mcg/mL intramuscular syringe Performing Provider: Leslie nEciso MD Performing Location: [facility] Administered by: Richa Sanderson CMA on 08/29/25 10:44 Dose Route Admin Location Dispensed Lot Number Expiration Date [facility] Alumni Relations Officer 1 mL IM Left Deltoid 1 mL [id number] 05/16/26 74769-602-99 Invenergy Total Dispensed Waste 1 mL 0 % VIS Given Date VIS Provided VIS Publication Date 08/29/25 Single Vaccine 23 Eligibility Eligibility Date Funding Source Not VFC Eligible 08/29/25 Private Results Reviewed Results Reviewed: Name: Laci Horner Age/Sex: 50/M : 1975 Unit#: [id number] Attend Dr: Leslie Enciso MD Re07/26/25 Status: DEP REF Location: [facility] Disch: SPEC : [id number] NAGELINA: 07/26/25 STATUS: COMP REQ : [id number] RECD: 07/26/[address]: Leslie Enciso MD COMP: 07/26/25 ENTERED: 07/26/[address]: ORDERED: Met Prof Fast, AST, ALT, Lipid Panel, Vitamin D 25-OH Test Result Flag Reference Sodium 140 135-145 mmol/L Potassium 4.0 3.3-5.1 mmol/L CL 106 96-108 mmol/L CO2 28 22-29 mmol/L Gap 10 L 12-20 BUN 11 9-16 mg/dL Creat 0.88 0.5-1.4 mg/dL eGFR > 60 Chronic Kidney Disease: Estimated GFR < 60 mL/min/1.73m2 Severe Kidney Disease: Estimated GFR < 15 mL/min/1.73m2 FBS 87 60-99 mg/dL CA 8.7 8.4-10.2 mg/dL AST (GOT) 24 5-37 U/L ALT (GPT) 16 0-40 U/L Triglyceride 89 <150 mg/dL Desirable Triglyceride: less than 150 mg/dL Borderline High Triglyceride 150-199 mg/dL High Triglyceride: 200-499 mg/dL Very High Triglyceride: greater than or equal to 5OO mg/dL Cholesterol 183 <200 mg/dL Desirable Cholesterol: less than 200 mg/dL Borderline High Cholesterol: 200-239 mg/dL High Cholesterol: greater than 239 mg/dL LDL Calculated 129 H <100 mg/dL Desirable LDL: less than 100 mg/dL Near Optimal/Above Optimal LDL: 110-129 mg/dL Borderline High LDL: 130-159 mg/dL High LDL: 160-189 mg/dL Very High LDL: greater than or equal to 190 mg/dL HDL 37 L >40 mg/dL Desirable HDL: greater than 40 mg/dL Note: This HDL assay may give artificially low results in patients with liver disease. Vitamin D 25-OH 56.0 >30 ng/mL Health Based Reference Values* < 20 ng/mL Deficient 20-30 ng/mL Insufficient > 30 ng/mL Sufficient Coding Level of Care Code Est Pt Level 4 (76491) Diagnoses Diabetes type 2, controlled E11.9 Urinary incontinence R32 Dyslipidemia E78.5 Assessment & Plan Assessment & Plan (1) Diabetes type 2, controlled: Comment: Patient states he has a history of being a type 2 diabetic. Patient's previous A1cs have been in control. Will redraw today. Patient not utilizing medication at this time. Code(s): E11.9 - Type 2 diabetes mellitus without complications Category: Medical (2) Urinary incontinence: Code(s): R32 - Unspecified urinary incontinence Category: Medical (3) Dyslipidemia: Code(s): E78.5 - Hyperlipidemia, unspecified Category: Medical Orders: Orders Hepatitis B Adult Immunization Today Z23 - Encounter for immunization PSA,Total (Free>4and<10) Today R32 - Unspecified urinary incontinence UA CC w/rflx Micro + Cult Today R32 - Unspecified urinary incontinence Basic Metabolic Panel Fasting 11/24/25 E11.9 - Type 2 diabetes mellitus without complications, E55.9 - Vitamin D deficiency, unspecified, E78.5 - Hyperlipidemia, unspecified Alanine Aminotransferase 11/24/25 E11.9 - Type 2 diabetes mellitus without complications, E55.9 - Vitamin D deficiency, unspecified, E78.5 - Hyperlipidemia, unspecified Microalbumin, Random (w Creat) Today E11.9 - Type 2 diabetes mellitus without complications Hepatitis B Surface Ab Qnt 4 Weeks Z01.84 - Encounter for antibody response examination Lipid Panel 11/24/25 E11.9 - Type 2 diabetes mellitus without complications, E55.9 - Vitamin D deficiency, unspecified, E78.5 - Hyperlipidemia, unspecified Hemoglobin A1c 11/24/25 E11.9 - Type 2 diabetes mellitus without complications, E55.9 - Vitamin D deficiency, unspecified, E78.5 - Hyperlipidemia, unspecified Aspartate Amino Transferase 11/24/25 E11.9 - Type 2 diabetes mellitus without complications, E55.9 - Vitamin D deficiency, unspecified, E78.5 - Hyperlipidemia, unspecified Vitamin D 25-OH Total 11/24/25 E11.9 - Type 2 diabetes mellitus without complications, E55.9 - Vitamin D deficiency, unspecified, E78.5 - Hyperlipidemia, unspecified Referrals Urology Referral R32 - Unspecified urinary incontinence Medications: New rosuvastatin 5 mg PO Q2D 45 tabs 1RF 3 months E11.9 - Type 2 diabetes mellitus without complications, E78.5 - Hyperlipidemia, unspecified
== END 2025-08-29 10:51 | disposition home or self-care (01) ==
LOC: HO.HMCC 09:35
PROVIDERS: PCP Internal Medicine; Visit Provider Internal Medicine
DX: Z23 Encounter for immunization (principal)